=== PATIENT | female | born 1955 | race Caucasian/White ===

== ENCOUNTER 2019-08-02 14:49 | Inpatient (IN) ==
[2019-08-02] MEDS ORDERED: Dextrose Gel 15 GM/37.5 ML TUBE PO PRN ×2 (20:56)
[2019-08-02] MEDS ORDERED: D5% in Water 1,000 ML IVC PRN (20:56)
[2019-08-02] MEDS ORDERED: *HR* Dextrose 50 % in Water (Syg) 50 ML SYRINGE IVP PRN (20:56)
[2019-08-02] MEDS ORDERED: Insulin LISPRO 300 UNITS/3 ML VIAL SQ SCH (21:00)
[2019-08-02] MEDS ORDERED: tiZANidine 4 MG TABLET PO PRN (22:07)
[2019-08-02 22:08] LABS: Basophils % 0.5 %; Eosinophils # 0.3 K/mcL (0.0-0.6); Eosinophils % 4.5 %; Hematocrit 39.7 % (35.3-44.9); Hemoglobin 13.4 g/dL (11.5-15.4); Immature Granulocytes % 0.2 % (0-4); Lymphocytes # 1.6 K/mcL (0.6-4.6); Lymphocytes % 26.4 %; Mean Corpuscular HGB Conc 33.8 g/dL (31.6-35.5); Mean Corpuscular Hemoglobin 29.8 pg (28.0-33.3); Mean Corpuscular Volume 88.4 fL (83.0-100.0); Monocytes # 0.6 K/mcL (0.0-1.3); Monocytes % 9.9 %; Neutrophils # 3.5 K/mcL (1.6-8.9); Platelet Count 154 K/mcL (140-400); Red Blood Count 4.49 M/mcL (3.82-4.97); Red Cell Distribution Width 13.2 % (11.5-14.5); Segmented Neutrophils % 58.5 %
[2019-08-02 22:10] LABS: Estimated Average Glucose 212 mg/dl
[2019-08-02] MEDS ORDERED: Acetaminophen 325 MG TABLET PO PRN (22:10)
[2019-08-02] MEDS ORDERED: Ondansetron 4 MG/2 ML VIAL IVP PRN (22:10)
[2019-08-02] MEDS ORDERED: traMADol 50 MG TABLET PO PRN (22:10)
[2019-08-02] MEDS ORDERED: Naloxone 0.4 MG/ML INJ IVP PRN (22:10)
[2019-08-02] MEDS ORDERED: 0.9 % Sodium Chloride 1,000 ML IVC SCH (22:15)
[2019-08-02 22:28] LABS: Alanine Aminotransferase 40 Units/L (7-52); Albumin 3.7 g/dL (3.5-5.7); Albumin/Globulin Ratio 1.2 (1.1-2.2); Alkaline Phosphatase 87 Units/L (34-104); Aspartate Amino Transferase 57 Units/L (13-39); BUN/Creatinine Ratio 30 (6-26); Bilirubin,Direct 0.2 mg/dL (0.0-0.2); Bilirubin,Indirect 0.5 mg/dL (0.0-1.2); Bilirubin,Total 0.7 mg/dL (0.3-1.0); Blood Urea Nitrogen 18 mg/dL (8-23); Calcium 8.8 mg/dL (8.6-10.3); Carbon Dioxide 24 mEq/L (23-29); Chloride 104 mEq/L (98-107); Chol/HDL Ratio 3.4 (0-4.9); Cholesterol 115 mg/dL (< 200); Glucose 242 mg/dL (70-105); HDL Cholesterol 34 mg/dL (40-59); LDL Cholesterol,Calculated 57 mg/dL (0-99); Magnesium 1.9 mg/dL (1.6-2.6); Osmolality,Calculated 294 (280-300); Potassium 3.4 mEq/L (3.5-5.1); Sodium 137 mEq/L (136-145); Total Protein 6.7 g/dL (6.4-8.9); Triglycerides 121 mg/dL (< 150); eGFR For African Americans > 60 (> 60); eGFR For Non-African Americans > 60 (> 60)
[2019-08-02] MEDS: *HR* OxyCODONE Immed Rel 5 MG TABLET PO PRN (22:28)
--- NOTE | 2019-08-02 23:35 | Internal Med History&Physical ---
Date of Encounter: 08/02/19 Time of Encounter: 21:30 Internal Medicine - H&P: HPI Chief complaint: Right ankle pain Admitted From: Hospital to Hospital Transfer Plans for Post Hospital Care: Home History of present illness: Ms. Fontana is a 63 year old female w/PMH of HLD, DM, GERD, neuropathy, seasonal allergies, chronic back pain, and anxiety presents from [facility] w/CC of right ankle pain and swelling from a fall sustained at home today. Patient reports that she was having a yard sale and was carrying an arm full of items down three steps when she missed a step and fell into grass. Patient reports pain in right ankle as well as muscle spams but denies dizziness, LOC, or striking head. Patient states that she was sedated and had rt. ankle reduction prior to being transferred to [facility]. Patient denies recent illness, fever, chills, nausea, vomiting, headache, changes in vision, chest pain, shortn ess of breath, abdominal pain, diarrhea, constipation, dizziness, lightheadedness, unusual bleeding, numbness, tingling, pre-syncope, or syncope. Past Med Surg Social Fam HX - Past Medical History Source: patient, old records reviewed Medical history: diabetes, GERD, hyperlipidemia, pulmonary embolus Additional medical history: neuropathy, chronic back pain, seasonal allergies Psychiatric history: anxiety - Past Surgical History Surgical History: cholecystectomy, hysterectomy Additional surgical history: tubal ligation - Social History Smoking Status: Former smoker Packs per day: 3-4 PPD - Reports quitting in 2001 Smokeless Tobacco Status: No Alcohol use: none Drug use: none Current living situation: Home, With Family Activity Level: Independent ambulation Recent Out of Country Travel Within the Last 8 Weeks: No Exposure or Possible Exposure to Illness During Travel: No - Family History Mother Race: Family Member Ethnicity: Non- Living Status: Age at : 84 Cause of : Heart Failure Hx Family Cardiac Disorders: Yes (CAD, Murmur, Afib, HF) Father Race: Family Member Ethnicity: Non- Living Status: Age at : 51 Cause of : Pneumonia Hx Family Respiratory Disorders: Yes (Asthma, PNA) Hx Family Musculoskeletal Disorders: Yes (Chronic back pain) Brother Race: Family Member Ethnicity: Non- Living Status: Age at : 63 Cause of : Pancreatic Cancer Hx Family Cardiac Disorders: Yes (CABG, CAD) Hx Family Cancer: Yes (Pancreatic) Hx Family Endocrine Disorder: Yes (DM) Sister Race: Family Member Ethnicity: Non- Living Status: Age at : 64 Cause of : Cancer (Type unknown) Hx Family Cardiac Disorders: Yes (CHF, CAD) Hx Family Cancer: Yes (Unknown) Hx Family Endocrine Disorder: Yes (DM) Internal Medicine - H&P: Meds Aspirin [Lo-Dose Aspirin EC] 81 mg PO DAILY 08/02/19 [History] Atorvastatin [Lipitor] 10 mg PO HS 08/02/19 [History] Esomeprazole Magnesium [Nexium] 20 mg PO DAILY 08/02/19 [History] Gabapentin [Neurontin] 100 mg PO BID 08/02/19 [History] Montelukast [Singulair] 10 mg PO HS 08/02/19 [History] Triamterene/Hydrochlorothiazid [Dyazide 37.5-25 Capsule] 25 each PO DAILY 08/02/19 [History] Venlafaxine [Effexor] 37.5 mg PO HS 08/02/19 [History] metFORMIN [Glucophage] 500 mg PO DAILY 08/02/19 [History] Allergy/AdvReac Type Severity Reaction Status Date / Time Cyclobenzaprine AdvReac Vomiting Verified 08/02/19 22:10 All Systems PM: A 10-system review of systems was performed and is negative for pertinent findings except as documented above in the HPI. - Constitutional Constitutional: no chills, no fever(s), no night sweats - EENT Eyes: no change in vision, no discharge, no pain, no photophobia Ears: no ear discharge, no ear pain, no tinnitus Nose, mouth and throat: no dysphagia, no nasal discharge, no neck pain, no sore throat - Breasts Breasts: as per HPI - Cardiovascular Cardiovascular ROS IM: no chest pain, no diaphoresis, no dyspnea, no lightheadedness, no palpitations, no syncope - Respiratory Respiratory: no cough, no dyspnea, no wheezing, no excessive phlegm production - Gastrointestinal Gastrointestinal: no abdominal pain, no diarrhea, no hematemesis, no hematochezia, no melena, no nausea, no vomiting - Genitourinary Genitourinary: no change in urinary stream, no dysuria, no flank pain, no hematuria Menstruation: as per HPI, post hysterectomy - Musculoskeletal Musculoskeletal ROS IM: no numbness, no tingling - Integumentary Integumentary IM: no rash, no unusual bruising - Neurological Neurological ROS: no confusion, no convulsions, no focal weakness, no numbness, no tingling, no tremor(s) - Psychiatric Psychiatric: as per HPI - Endocrine Endocrine IM: as per HPI - Hematologic/Lymphatic Hematologic/Lymphatic: no easy bruising - Allergic/Immunologic Allergic/Immunologic: as per HPI - Constitutional Vitals: Temp Pulse Resp BP Pulse Ox 98.4 F 77 20 117/77 96 08/02/19 21:39 08/02/19 21:39 08/02/19 21:39 08/02/19 21:39 08/02/19 21:39 General appearance: Present: cooperative, mild distress, A&O X 3, pleasant, obese, answers questions appropriately Exam: Patient examined at bedside and was reporting pain in right ankle and muscle s pasms in right leg. Patient denies any other sx or complaints on examination. VS: 98.4F temp, HR 77, RR 20, BP 117/77, SPO2 96% on room air. - Head Head exam: Present: atraumatic, normocephalic - Eye Eye exam: Present: PERRL, conjuntiva pink, sclera anicteric Pupils: Present: PERRL - ENT ENT exam: Present: normal exam - Neck Neck exam general surgery: Present: normal inspection, supple, trachea midline. Absent: lymphadenopathy - Respiratory Respiratory exam: Present: CTAB. Absent: accessory muscle use, rales, rhonchi, wheezes - Cardiovascular Cardiovascular exam: Present: RRR, +S1, +S2. Absent: diastolic murmur, gallop, rubs, systolic murmur - GI/Abdominal GI/Abdominal exam: Present: normal bowel sounds, soft, no peritoneal signs. Absent: distended, tenderness - Rectal Rectal exam: Present: deferred - Additional comments: exam deferred. - Extremities Exam Extremities exam: Present: warm, radial pulses palpable and symmetrical. Absent: calf tenderness, cyanotic, pedal edema - Back Exam Back exam: Present: normal inspection - Neurological Exam Neurological exam: Present: alert, CN II-XII intact, oriented X3, no focal deficits. Absent: pronater drift, facial droop, speech deficit - Psychiatric Psychiatric exam: Present: normal affect, normal mood - Skin Skin exam: Present: dry, intact Internal Med - H&P Results - Labs CBC & Chem 7: 08/02/19 21:35 08/02/19 21:35 Labs: Short CBC 08/02/19 Range/Units 21:35 WBC 6.0 (4.3-11.1) K/mcL Hgb 13.4 (11.5-15.4) g/dL Hct 39.7 (35.3-44.9) % Plt Count 154 (140-400) K/mcL Neutrophils # 3.5 (1.6-8.9) K/mcL BMP 08/02/19 21:35 Sodium 137 Potassium 3.4 L Chloride 104 Carbon Dioxide 24 BUN 18 Creatinine 0.61 Glucose 242 H Calcium 8.8 Liver Function 08/02/19 Range/Units 21:35 Total Bilirubin 0.7 (0.3-1.0) mg/dL Direct Bilirubin 0.2 (0.0-0.2) mg/dL AST 57 H (13-39) Units/L ALT 40 (7-52) Units/L Alkaline Phosphatase 87 (34-104) Units/L Albumin 3.7 (3.5-5.7) g/dL - EKG Data EKG shows normal: sinus rhythm Rate: normal - EKG Data Prior EKG available for review: no Interpretation IM: normal EKG - Impressions ITS Impressions Chest X-Ray 08/02/19 22:20 IMPRESSION: Possible 13 mm spiculated pulmonary nodule within the left lung apex. Recommend follow-up chest CT. No radiographic evidence of acute cardiopulmonary process. The findings were sent to the Radiology Results Communication Center at 10:22 pm on 08/02/2019 to be communicated to a licensed caregiver. D/ / 08/02/2019 22:42:41 Denzel Arana MD / dany Interpreting Provider: Denzel Arana MD - Assessment and Plan (1) Closed right ankle fracture Current Visit: Yes Status: Acute Assessment and plan: Acute and closed right ankle fracture with pain and swelling from a fall sustained at home today. Patient reports that she was having a yard sale and was carrying an arm full of items down three steps when she missed a step and fell into grass. Patient reports pain in right ankle as well as muscle spams but denies dizziness, LOC, or striking head. Patient states that she was sedated and had rt. ankle reduction prior to being transferred to [facility]. No recent cardiac w/u. Patient has familial hx of CAD/HF. EKG shows sinus rhythm and normal ECG. 1V CXR shows possible 13 mm spiculated pulmonary nodule within the left lung apex recommend follow-up chest CT. No radiographic evidence of acute cardiopulmonary process. Echocardiogram ordered. Ortho consult ordered prior to patient transfer to [facility] and I appreciate the consult and recommendations as always. Patient is high risk for further morbidity and complications based on current right ankle fracture, familial hx of CAD/HF, no recent cardiac w/u requiring testing and imaging for surgical clearance, previously heavy tobacco abuse (3-4 PPD); and current risk factors of HLD, DM, and obesity. Inpatient. Qualifiers: Encounter type: initial encounter Qualified Code(s): S82.891A - Other fracture of right lower leg, initial encounter for closed fracture (2) Hypokalemia Current Visit: Yes Status: Acute Assessment and plan: Acute hypokalemia on admission w/potassium of 3.4. 40 mEq PO potassium ordered once. Will re-check K at 04:00. Continuous cardiac telemetry. (3) HLD (hyperlipidemia) Current Visit: Yes Status: Chronic Assessment and plan: Hx of chronic HLD. Lipid panel shows triglycerides 121, cholesterol 115, LDL cholesterol 57, VLDL cholesterol 24, HDL cholesterol 34, and cholesterol/HDL ratio 3.4. Continue pts. Lipitor. Qualifiers: Hyperlipidemia type: pure hypercholesterolemia Qualified Code(s): E78.00 - Pure hypercholesterolemia, unspecified; E78.0 - Pure hypercholesterolemia (4) Diabetes Current Visit: Yes Status: Chronic Assessment and plan: Hx of chronic diabetes controlled with oral anti-hyperglycemic medication. Will hold oral medication and administer low-dose correction SS insulin w/hypoglycemic protocol. A1c 9.0 on admission. BG checks and SS insulin Q6HR while patient is NPO for surgery. BG checks and SS insulin ACHS when patient is no longer NPO and has diet order in place. Qualifiers: Diabetes mellitus type: type 2 Diabetes mellitus shelter insulin use: without shelter use Diabetes mellitus complication status: with neurologic complications Diabetes mellitus complication detail: with unspecified neuropathy Qualified Code(s): E11.40 - Type 2 diabetes mellitus with diabetic neuropathy, unspecified (5) Neuropathy Current Visit: Yes Status: Chronic Assessment and plan: Hx of chronic diabetic neuropathy in bilateral feet. Continue pts. Neurontin. (6) GERD (gastroesophageal reflux disease) Current Visit: Yes Status: Chronic Assessment and plan: Hx of chronic GERD. Continue pts. Nexium. Qualifiers: Esophagitis presence: esophagitis presence not specified Qualified Code(s): K21.9 - Gastro-esophageal reflux disease without esophagitis (7) Seasonal allergies Current Visit: Yes Status: Chronic Assessment and plan: Hx of chronic seasonal allergies. Continue pts. Singulair. (8) Anxiety Current Visit: Yes Status: Chronic Assessment and plan: Hx of chronic anxiety. Continue pts. Effexor. (9) DVT prophylaxis Current Visit: Yes Status: Acute Assessment and plan: SCD on LLE for DVT prophylaxis d/t impending surgery. - Time Spent With Patient Total time spent is greater than 50% in coordination of care (as documented) at patient's floor/unit and/or counseling patient: Greater than 35 minutes
[2019-08-03] MEDS: Insulin LISPRO 300 UNITS/3 ML VIAL SQ SCH ×3 (01:44→13:38)
[2019-08-03] MEDS: *HR* OxyCODONE Immed Rel 5 MG TABLET PO PRN ×3 (04:21→23:57)
[2019-08-03] MEDS ORDERED: Perflutren Lipid Microsphere 1.3 ML in 0.9 % Sodium Chloride 8.7 ML IVP ONE ×2 (07:17→17:03)
[2019-08-03] MEDS ORDERED: Insulin LISPRO 300 UNITS/3 ML VIAL SQ SCH ×3 (07:30→21:00)
--- NOTE | 2019-08-03 08:16 | Podiatry Consult Note ---
Date of Encounter: 08/03/19 Time of Encounter: 08:20 Assessment and Plan (1) Closed trimalleolar fracture of right ankle Current visit: Yes Status: Acute I had a thorough review with the patient lasting 62 minutes regarding her injury , my findings, and recommendations for treatment. we discussed her ankle and that the fracture is not stable as deformity is easily reproduced. we discussed she will have arthritis of the right ankle joint due to her injury and may have pain in the future. she could need future surgery for the arthritis but for now discussed ORIF right ankle fracture and syndesmosis using plates, screws or other fixation as well as fixation. Nature of procedure, risks vs benefits, potential complications and consequences of the procedure and her injury discussed at length (including but not limited to infection, bleeding, swelling, numbness, tingling, nerve damage, loss of limb, loss of life, wound healing problems, delayed or nonhealing of bone fracture, arthritis, loss of functionality, ongoing or persistent pain, pneumonia, lack of procedure to produce desired outcome, kidney disease, liver problems, pulmonary embolism, blood clot, heart attack, reaction to implants, need for hardware removal need for further surgery etc.) as well as a typical course of recovery of non-wb for 8-12 weeks followed by a walking boot. no guaratees were made as to the outcome. All questions were answered, informed consent was signed. Did discuss with patient it is imperative that she stay off her right ankle and remain non- weightbearing and if she does not her ankle will redislocate and the bones could come out of her skin and she could require an amputation of her leg. Poste rior splint reapplied. Elevation. Remain non-wb to the right LE in the splint. Remain NPO. on call to OR. Qualifiers: Encounter type: initial encounter Qualified Code(s): S82.851A - Displaced trimalleolar fracture of right lower leg, initial encounter for closed fracture (2) Diabetes mellitus with neuropathy Current visit: Yes Status: Acute encouraged glycemic control and discussed the detrimental effects of high blood sugar on wound and fracture healing. discussed increased risk of complications with elevated blood sugar and also mcc effect on nerves. Qualifiers: Diabetes mellitus type: type 2 Diabetes mellitus rn long term care insulin use: without mcc use Qualified Code(s): E11.40 - Type 2 diabetes mellitus with diabetic neuropathy, unspecified History of Present Illness HPI: Ms. Fontana is a 63 year old diabetic female who says yesterday she was having a garage sale and mis-stepped as she was walking downstairs resulting in her falling and twisting her right ankle. she says it hurt a lot and she was unable to put weight on it. Her family called EMS who brought her to the ER where an xray was done. She says the ankle was broken and they put her ankle back into place. there are no post-reduction films sent with the patient. She was transferred from [facility] to [place]. She is currently in a posterior splint. She says a few months ago she had her A1c checked and it was good. her A1c was 9% when checked here yesterday. she says she does not know how her blood sugar average got so bad. patient takes metformin at home and says that her doctor that manages her diabetes doubled the dose of her metformin the last time she was seen. says she was told previously to take vitamin D but has not yet taken it. She says her pain currently is a 1-2/10 and if her ankle is moved it becomes an 8-9/10. She denies any significant cardiac history. She does report she has numbness and tingling in her feet at baseline and also lower back problems. She does have some family support at home and says she has her and son to help. Past Med Surg Social Fam HX - Past Medical History Medical history: diabetes, GERD, hyperlipidemia, pulmonary embolus Additional medical history: neuropathy, chronic back pain, seasonal allergies Psychiatric history: anxiety - Past Surgical History Surgical History: cholecystectomy, hysterectomy Additional surgical history: tubal ligation - Social History Smoking Status: Former smoker Packs per day: 3-4 PPD - Reports quitting in 2001 Smokeless Tobacco Status: No Alcohol use: none Drug use: none - Family History Mother Race: Family Member Ethnicity: Non- Living Status: Age at : 84 Cause of : Heart Failure Hx Family Cardiac Disorders: Yes (CAD, Murmur, Afib, HF) Father Race: Family Member Ethnicity: Non- Living Status: Age at : 51 Cause of : Pneumonia Hx Family Respiratory Disorders: Yes (Asthma, PNA) Hx Family Musculoskeletal Disorders: Yes (Chronic back pain) Brother Race: Family Member Ethnicity: Non- Living Status: Age at : 63 Cause of : Pancreatic Cancer Hx Family Cardiac Disorders: Yes (CABG, CAD) Hx Family Cancer: Yes (Pancreatic) Hx Family Endocrine Disorder: Yes (DM) Sister Race: Family Member Ethnicity: Non- Living Status: Age at : 64 Cause of : Cancer (Type unknown) Hx Family Cardiac Disorders: Yes (CHF, CAD) Hx Family Cancer: Yes (Unknown) Hx Family Endocrine Disorder: Yes (DM) Medications and Allergies Aspirin [Lo-Dose Aspirin EC] 81 mg PO DAILY 08/02/19 [History] Atorvastatin [Lipitor] 10 mg PO HS 08/02/19 [History] Esomeprazole Magnesium [Nexium] 20 mg PO DAILY 08/02/19 [History] Gabapentin [Neurontin] 100 mg PO BID 08/02/19 [History] Montelukast [Singulair] 10 mg PO HS 08/02/19 [History] Triamterene/Hydrochlorothiazid [Dyazide 37.5-25 Capsule] 25 each PO DAILY 08/02/19 [History] Venlafaxine [Effexor] 37.5 mg PO HS 08/02/19 [History] metFORMIN [Glucophage] 500 mg PO DAILY 08/02/19 [History] Allergy/AdvReac Type Severity Reaction Status Date / Time Cyclobenzaprine AdvReac Vomiting Verified 08/02/19 22:10 All Systems Reviewed: The remainder of the systems were reviewed and are negative - Constitutional Constitutional: no fever(s) - Cardiovascular Cardiovascular: no chest pain, no dyspnea - Respiratory Respiratory: no cough - Musculoskeletal Musculoskeletal: limited range of motion, numbness Physical Exam - Constitutional Vitals: Temp Pulse Resp BP Pulse Ox 98.2 F 69 18 113/76 92 08/03/19 06:28 08/03/19 06:28 08/03/19 06:28 08/03/19 06:28 08/03/19 06:28 General appearance: no acute distress - Head Head exam: Present: atraumatic - Eye Eye exam: Present: EOMI - Respiratory Respiratory exam: Present: CTAB - Cardiovascular Cardiovascular exam: Present: +S1, +S2 - GI/Abdominal GI/Abdominal exam: Present: soft. Absent: tenderness - Ankle & Foot Appearance ankle: swelling Tenderness with palpation ankle: anterior ankle, anteromedial ankle, medial ankle Exam: well developed and nourished female in no acute distress Well developed and nourished female in no acute distress Vasc: CFT < 3 sec x 5 digits right foot. right foot is warm to touch. Mild edema of right ankle. Derm: no open lesions. No erythema. Small medial fracture blister, otherwise no fracture blisters. no necrosis. no tenting of the skin. Musc: did not assess ROM secondary to injury. Able to flex and extend left foot digits. No calf pain with squeeze. deformity of the right ankle is easily reproduced. Neuro: diminished protective sensation Xrays-displaced trimalleolar ankle fracture Results - Labs Result Diagrams: 08/02/19 21:35 08/03/19 03:14 Labs: Abnormal lab results Potassium 3.4 mEq/L (3.5-5.1) L 08/02/19 21:35 BUN/Creatinine Ratio 30 (6-26) H 08/02/19 21:35 Glucose 242 mg/dL (70-105) H 08/02/19 21:35 POC Glucose 266 mg/dL (70-99) H 08/02/19 20:43 Hemoglobin A1c 9.0 % (-5.6) H 08/02/19 21:35 AST 57 Units/L (13-39) H 08/02/19 21:35 HDL Cholesterol 34 mg/dL (40-59) L 08/02/19 21:35 H & H 08/02/19 Range/Units 21:35 Hgb 13.4 (11.5-15.4) g/dL Hct 39.7 (35.3-44.9) % All other labs normal. Consult Discharge Plan - Plan Referrals: NONE,PCP [Primary Care Provider] - Constitutional: Denies: fever, chills Eyes: Denies: eye pain Cardiovascular: Denies: chest pain Respiratory: Denies: cough, dyspnea Gastrointestinal: Denies: abdominal pain, nausea Genitourinary: Denies: urgency, dysuria Musculoskeletal: Reports: back pain, joint swelling, other Neurological: Reports: numbness ((diabetes)) Psychiatric: Reports: depression Endocrine: Denies: fatigue Hematological/Lymphatic: Denies: easy bleeding Allergic/Immunologic: Denies: facial swelling
--- NOTE | 2019-08-03 10:36 | Internal Med Progress Note ---
Hospitalist Progress Note - Encounter Date of Encounter: 08/03/19 Time of Encounter: 09:30 - Subjective Interval History: H&P reviewed. 63-year-old female with history of diabetes, hyperlipidemia, obesity, chronic low back pain, who was admitted for right ankle fracture following a mechanical fall. Prior to the injury, he states that she is able to climb up a flight of stairs without dyspnea. Denies any chest pain, palpitation, orthopnea, PND, or leg swelling. - Exam Vitals: Temp Pulse Resp BP Pulse Ox 98.2 F 69 18 113/76 92 08/03/19 06:28 08/03/19 06:28 08/03/19 06:28 08/03/19 06:28 08/03/19 06:28 Exam: General: Alert and oriented, not in acute distress. Cardiovascular:Normal S1 & S2, No JVD. Pulse regular. Lungs: clear to auscultation, no wheezes/rales Abdomen:Soft, non-tender, no rigidity. Extremities: R LE in splint Neurological:Normal cognition and motor skills. Non-focal Skin:Normal color, no rash, no lesions. - Assessment and Plan (1) Closed right ankle fracture Current Visit: Yes Status: Acute Assessment and Plan: following a mechanical fall podiatry input appreciated, for OR today analgesics (2) Pre-op evaluation Current Visit: Yes Status: Acute Assessment and Plan: Patient does not have any signs and symptoms of ACS, malignant arrhythmia, or decompensated CHF. RCRI 0, able to perform > 4 METS at baseline Low risk for surgery, echocardiogram was essentially normal. No further pre-op testing is necessary (3) Hypokalemia Current Visit: Yes Status: Resolved Assessment and Plan: Repleted and normalized (4) HLD (hyperlipidemia) Current Visit: Yes Status: Chronic Assessment and Plan: Continue home medicine (5) Diabetes Current Visit: Yes Status: Chronic Assessment and Plan: On metformin at home, hold off. We will use low-dose sliding scale. (6) GERD (gastroesophageal reflux disease) Current Visit: Yes Status: Chronic Assessment and Plan: PPI (7) Anxiety Current Visit: Yes Status: Chronic Assessment and Plan: on Effexor (8) DVT prophylaxis Current Visit: Yes Status: Acute Assessment and Plan: SCD - Time Spent with Patient Total time spent is greater than 50% in coordination of care (as documented) at patient's floor/unit and/or counseling patient: 25 - 35 minutes Plan of Care Discussed with: patient Internal Medicine: Result - Labs CBC & Chem 7: 08/02/19 21:35 08/03/19 03:14 Labs: Short CBC 08/02/19 Range/Units 21:35 WBC 6.0 (4.3-11.1) K/mcL Hgb 13.4 (11.5-15.4) g/dL Hct 39.7 (35.3-44.9) % Plt Count 154 (140-400) K/mcL Neutrophils # 3.5 (1.6-8.9) K/mcL BMP 08/02/19 08/03/19 21:35 03:14 Sodium 137 Potassium 3.4 L 3.8 Chloride 104 Carbon Dioxide 24 BUN 18 Creatinine 0.61 Glucose 242 H Calcium 8.8 Liver Function 08/02/19 Range/Units 21:35 Total Bilirubin 0.7 (0.3-1.0) mg/dL Direct Bilirubin 0.2 (0.0-0.2) mg/dL AST 57 H (13-39) Units/L ALT 40 (7-52) Units/L Alkaline Phosphatase 87 (34-104) Units/L Albumin 3.7 (3.5-5.7) g/dL - Impressions Impressions Chest X-Ray 08/02/19 22:20 IMPRESSION: 1. Possible 13 mm spiculated pulmonary nodule within left lung apex. Recommend follow-up chest CT. 2. No radiographic evidence of acute cardiopulmonary process. The findings were sent to the Radiology Results Communication Center at 10:22 pm on 08/02/2019 to be communicated to a licensed caregiver. D/ / 08/02/2019 22:42:41 Denzel Arana MD / [email or web address] Interpreting Provider: Denzel Arana MD Echocardiogram 08/03/19 08:09 Impressions: LVEF 60-65%. Normal LV chamber size, wall thickness and function. Normal left ventricular diastolic function. No evidence of pulmonary hypertension identified. No significant valvular dysfunction. Left Ventricular Wall Motion: Rest Echo Findings All wall segments showed normal motion. Findings: Study Quality * Technically sub-optimal due to poor echocardiographic windows. ECG Findings * Normal sinus rhythm. Left Ventricle * LVEF 60-65%. * Normal LV chamber size, wall thickness and function. * Normal left ventricular diastolic function. Right Ventricle * Normal right ventricular structure and function. Left Atrium * Normal left atrial size. Right Atrium * Normal right atrial size. Interatrial Septum * Interatrial septum not well evaluated. Aortic Valve * Aortic valve not well visualized. * No aortic regurgitation. * No aortic stenosis. Mitral Valve * Normal mitral valve structure and function. * No mitral regurgitation. * No mitral stenosis. Tricuspid Valve * Normal tricuspid valve structure and function. * Trace tricuspid regurgitation. * No evidence of pulmonary hypertension identified. Pulmonic Valve * Pulmonic valve not well visualized. Aorta * Normally sized aortic root. Pericardium * The pericardium appears normal. IVC * Normal IVC dimensions and inspiratory collapse. Pulmonary Artery * Grossly normal sized. Consult Discharge Plan - Plan Referrals: NONE,PCP [Primary Care Provider] - (1) Closed right ankle fracture Qualifiers: Encounter type: initial encounter Qualified Code(s): S82.891A - Other frac ture of right lower leg, initial encounter for closed fracture (4) HLD (hyperlipidemia) Qualifiers: Hyperlipidemia type: pure hypercholesterolemia Qualified Code(s): E78.00 - Pure hypercholesterolemia, unspecified; E78.0 - Pure hypercholesterolemia (5) Diabetes Qualifiers: Diabetes mellitus type: type 2 Diabetes mellitus termite helper insulin use: without termite helper use Diabetes mellitus complication status: with neurologic complications Diabetes mellitus complication detail: with unspecified neuropathy Qualified Code(s): E11.40 - Type 2 diabetes mellitus with diabetic neuropathy, unspecified (6) GERD (gastroesophageal reflux disease) Qualifiers: Esophagitis presence: esophagitis presence not specified Qualified Code(s): K21.9 - Gastro-esophageal reflux disease without esophagitis
--- NOTE | 2019-08-03 11:51 | Anesthesia Evaluation PreOp ---
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: Other (anxiety) Other Medical History: Diabetes Type II, GERD, Other (neuropathy, chronic back pain,) Anesthesia History: No Prior Anesthetic Complications, Past Anesthesia (oscar, hyster, tubal) : No Alcohol Use: none Drug use: none Medications and Allergies Aspirin [Lo-Dose Aspirin EC] 81 mg PO DAILY 08/02/19 [History] Atorvastatin [Lipitor] 10 mg PO HS 08/02/19 [History] Esomeprazole Magnesium [Nexium] 20 mg PO DAILY 08/02/19 [History] Gabapentin [Neurontin] 100 mg PO BID 08/02/19 [History] Montelukast [Singulair] 10 mg PO HS 08/02/19 [History] Triamterene/Hydrochlorothiazid [Dyazide 37.5-25 Capsule] 25 each PO DAILY 08/02/19 [History] Venlafaxine [Effexor] 37.5 mg PO HS 08/02/19 [History] metFORMIN [Glucophage] 500 mg PO DAILY 08/02/19 [History] Allergy/AdvReac Type Severity Reaction Status Date / Time Cyclobenzaprine AdvReac Vomiting Verified 08/02/19 22:10 - Meds/Allergy Pre-op Review Medications Reviewed: Yes Allergies Reviewed: Yes Beta Blockers on Current Med List: No Anesthesia Results - Labs 08/02/19 21:35 08/03/19 03:14 - Imaging Chest x-ray: report reviewed (apical nodule 13mm) Additional studies: Echo EF 60-65% Anesthesia Exam Vital Signs/O2 Sat/Glucose, Most Recent Temp Pulse Resp BP Pulse Ox 98.9 F 83 18 120/69 94 08/03/19 11:39 08/03/19 11:39 08/03/19 11:39 08/03/19 11:39 08/03/19 11:39 Blood Glucose* 122 - HEENT Pupil (Motor): Pupils equal, EOMI Mallampati: II Teeth: Normal Oral Opening: Greater than 3 - TEXTILE SCREEN MAKER LOC: Oriented TEXTILE SCREEN MAKER Motor: Normal RUE, Normal LUE, Normal RLE, Normal LLE, Normal Face TEXTILE SCREEN MAKER Sensory: Normal: RUE, LUE, RLE, LLE, Face - Cardiac Rhythm: Regular Murmur: None JVD: No - Pulmonary Breath Sounds: bilateral Clear Respiratory Effort: Symmetrical Anesthesia Assess/Plan ASA Score: 3 Level of consciousness: Cooperative, Oriented Anesthetic Plan: General, Regional Nerve Block Monitoring Plan: Standard Monitors Recovery Plan: PACU
[2019-08-03] MEDS ORDERED: *HR* Meperidine 25 MG/ML SYRINGE IVP PRN ×2 (11:57→17:03)
[2019-08-03] MEDS ORDERED: *HR* Midazolam HCl 2 MG/2 ML VIAL IVP PRN ×2 (11:57→17:03)
[2019-08-03] MEDS ORDERED: *HR* HYDROmorphone (PF) 1 MG/ML SYRINGE IVP PRN ×2 (11:57→17:03)
[2019-08-03] MEDS ORDERED: *HR* Promethazine 25 MG/ML VIAL IVP PRN ×2 (11:57→17:03)
[2019-08-03] MEDS ORDERED: Acetaminophen IV 1,000 MG/100 ML INFUS..BTL IVPB ONE ×2 (11:57→17:03)
[2019-08-03] MEDS ORDERED: Ringers Solution, Lactated 1,000 ML IVC SCH ×2 (12:00→17:03)
[2019-08-03] MEDS ORDERED: *HR* Midazolam HCl 2 MG/2 ML VIAL ONE (12:47)
[2019-08-03] MEDS ORDERED: *HR* FentaNYL (PF) 100 MCG/2 ML VIAL ONE (12:47)
[2019-08-03] MEDS ORDERED: *HR* Propofol 200 MG/20 ML VIAL IVP ONE ×2 (12:47→14:56)
[2019-08-03] MEDS ORDERED: Dexamethasone 4 MG/ML VIAL ONE ×2 (12:48→14:42)
[2019-08-03] MEDS ORDERED: *HR* Succinylcholine 200 MG/10 ML VIAL IVP ONE (12:48)
[2019-08-03] MEDS ORDERED: Lidocaine -MPF 2% 2 ML VIAL ONE (12:48)
[2019-08-03] MEDS ORDERED: ROPIVACAINE/PF/NS 0.25% 1 EACH SYRINGE INTRAART ONE (13:43)
[2019-08-03] MEDS ORDERED: Ropivacaine/PF 0.5% 30 ML VIAL ONE (13:43)
--- NOTE | 2019-08-03 13:54 | Operative Note ---
Date of procedure: 08/03/19 Pre-op diagnosis: right trimalleolar ankle fracture Procedure: ORIF right trimalleolar ankle fracture ORIF syndesmosis Implants: [id number] plate and screws Complications: none Anesthesia: GETA Local Anesthetics: 0.25% Sensorcaine HCL with Epinephrine 1:200,000 SubQ (cc) Surgeon: Alejandro Mahoney Was there an sales assistants and salespersons present: No Estimated blood loss (cc): 10 Tourniquet Time (Minutes): 59 Specimen: none Condition: stable Disposition: PACU Procedure in Detail: Indications: 63-year-old uncontrolled diabetic female with neuropathy sustained a right trimalleolar ankle fracture dislocation yesterday and being brought to the operating room for the above procedure after having the nature of the procedure, risks versus benefits potential complications and consequences of surgery and her condition discussed at length. She understood that she will have arthritis due to the nature of her injury. All of her questions have been answered and the informed consent and then signed. Patient was given a popliteal block by anesthesia. Patient was brought to the operating room placed on operating room table in the supine position. The right lower extremity was scrubbed prepped and draped in the usual sterile fashion and the following procedure then began after inflating the tourniquet to 300 mmHg. ORIF right trimalleolar ankle fracture, ORIF of syndesmosis. Attention was directed to the lateral aspect of the patient's right ankle were #15 blade was used to make a skin incision approximately 7 cm in length over the fracture site. Skin incision was deepened through blunt dissection all traversing veins were divided and ligated using the Bovie or Vicryl ties as deemed appropriate. Care was taken to avoid neurovascular and tendon structures. The periosteal layer was incised and freed from the fibula exposing the fracture zone of the fibula which was comminuted. Hematoma was evacuated from the fracture zone. The ankle was pinned in a reduced position with the talus under the tibia and well aligned and the ankle mortise. C-arm was utilized to confirm reduction of the talus and the ankle mortise and that the fibula was out to length. Reduction clamps were used to stabilize the fracture zone using an [id number] one third tubular plate was placed over the later aspect of the fibula. Stability was noted across the fracture zone clinically. The fibula was out to length. Three screws were placed proximally and distally. The site was flushed with saline irrigation. Stability of the fracture zone was assessed and the fracture zone had good apposition and the ankle was noted to be in good position and alignment on the C-arm. Attention was then directed medially where a #15 blade was used to make a skin incision approximately 3 cm in length over the medial malleolus. Skin incision was deepened through blunt dissection care was taken to avoid neurovascular tendinous structures. Hematoma was evacuated from the fracture zone and periosteum removed from the fracture zone. The medial malleolar fracture fragment was then reduced with a reduction clamp and pinned temporarily. C-arm was utilized to confirm position and alignment of the k-wires traversing the fracture zone. Fracture was noted to be reduced and two 4.0mm partially threaded cannulated [id number] screws were thrown across the fracture zone. The posterior malleolar fragment was small and the decision was made not to fixate the fragment. Attention was then directed laterally where the cotton hook test was performed and instability of the syndesmosis was felt to be present. The lateral ankle incision was extended distally and the last hole in the one third tubular plate was identified. The pelvic reduction clamp was utilized under fluoroscopy and the syndesmosis held in a reduced position and a 3.5 mm nonlocking [id number] screw was thrown through the plate. Stability of the syndesmosis was then felt to be present clinically. X-ray showed good tib-fib overlap. No increase in medial clear space. The talus was aligned in the ankle mortise and the fibula was out to length. Periosteal layers were closed with 2-0 Vicryl subcutaneous tissues were closed with 2-0 Vicryl and the skin was reapproximated with doug laterally and 3-0 nylon medially. Postoperative bandaging included Xeroform, 4 x 4 gauze, Kerlix and an adequately padded posterior splint. The patient tolerated the anesthesia and the procedure well and was escorted to the recovery room with vital signs stable and vascular status intact to the right foot noted by instant capillary refill time to all digits of the right foot. Elevation. Strict instructions given for non- weightbearing to the right lower extremity. Return to the floor.
[2019-08-03] MEDS ORDERED: Bupivacaine/EPI 1:200k 0.25%PF 30 ML VIAL ONE (14:00)
[2019-08-03] MEDS ORDERED: Calcium Gluconate 1,000 MG/10 ML VIAL ONE (14:09)
--- NOTE | 2019-08-03 14:14 | Anesthesia Procedures ---
Date of Encounter: 08/03/19 Time of Encounter: 14:00 Procedures: Anesthesia - Nerve Block Procedure Date: 08/03/19 Time: 14:00 Allergies/Adv Reactions: Allergies Cyclobenzaprine Adverse Reaction (Verified 08/02/19 22:10) Vomiting Pre-op Diagnosis: right ankle fracture Surgical Procedure: right ankle ORIF Checklist: Correct Patient Identifier, Correct procedure, History checked Correct side: Right Blood Thinner: No Monitor Applied: EKG, BP, Pulse Oximetry Supplemental Oxygen via Nasal Cannula (L/min): 4 Sedation: Versed (mg): 4 Indication: Post Op Analgesia Block Type: Popliteal, Other (addcutor canal) Catheter placed: No Sterile Technique: Yes Ultrasound used: Yes Anatomy identified: Yes Visual spread of Local: Yes Blood on Needle Aspiration: No Smooth Injection of Local: Yes Pain with Injection of Local: Yes Prep: Chlorhexadine Needle: 21 x 100 mm Stimuplex Local: Ropivacaine (30ml 0.5% ropivacaine with 4 mg decadron, 20ml 0.25% ropivavaine with 4 mg decadron) Volume (cc): 50 Number of Attempts: 1 Complications: None/effective block Vitals: see nursing vitals
[2019-08-03] MEDS ORDERED: *HR* PHENYLEPHRINE 1,000 MCG/10 ML SYRINGE IVP ONE (14:31)
[2019-08-03] MEDS ORDERED: Ondansetron 4 MG/2 ML VIAL ONE (14:42)
[2019-08-03] MEDS ORDERED: ceFAZolin 2,000 MG in 0.9 % Sodium Chloride 100 ML IVPB SCH (16:00)
--- NOTE | 2019-08-03 16:41 | Anesthesia Evaluation Post Op ---
Date of Encounter: 08/03/19 Time of Encounter: 16:40 - Vital Signs Vital Signs: Vital Signs/O2 Sat/Glucose, Most Recent Temp Pulse Resp BP Pulse Ox 97.6 F 57 12 94/56 95 08/03/19 16:35 08/03/19 16:35 08/03/19 16:35 08/03/19 16:35 08/03/19 16:35 Blood Glucose* 130 - Lungs Lungs: Clear Ascult./Percussion - Airway Airway: Non-obstructed - Cardiovascular Regular Rate - Mental Status Mental Status: Asleep with brisk response to light stimulation - Pain Pain Scale: 0 - Nausea Vomiting Nausea Vomiting: Not Present - Hydration Hydration: Ice chips - Discharge PostOp Status: Transfer Patient to floor
[2019-08-03] MEDS ORDERED: Dextrose Gel 15 GM/37.5 ML TUBE PO PRN ×2 (17:03)
[2019-08-03] MEDS ORDERED: tiZANidine 4 MG TABLET PO PRN (17:03)
[2019-08-03] MEDS ORDERED: Naloxone 0.4 MG/ML INJ IVP PRN (17:03)
[2019-08-03] MEDS ORDERED: Ondansetron 4 MG/2 ML VIAL IVP PRN (17:03)
[2019-08-03] MEDS ORDERED: D5% in Water 1,000 ML IVC PRN (17:03)
[2019-08-03] MEDS ORDERED: Acetaminophen 325 MG TABLET PO PRN (17:03)
[2019-08-03] MEDS ORDERED: traMADol 50 MG TABLET PO PRN (17:03)
[2019-08-03] MEDS ORDERED: *HR* Dextrose 50 % in Water (Syg) 50 ML SYRINGE IVP PRN (17:03)
[2019-08-03] MEDS ORDERED: Venlafaxine XR (24 HR) 37.5 MG CAP.ER.24H PO SCH ×2 (21:00)
[2019-08-03] MEDS ORDERED: Gabapentin 100 MG CAPSULE PO SCH (21:00)
[2019-08-03] MEDS: Gabapentin 100 MG CAPSULE PO SCH (22:11)
[2019-08-04] MEDS ORDERED: *HR* Enoxaparin 40 MG/0.4 ML SYRINGE SQ SCH ×2 (06:00)
[2019-08-04 06:29] LABS: Hematocrit 37.9 % (35.3-44.9); Hemoglobin 12.6 g/dL (11.5-15.4); Mean Corpuscular HGB Conc 33.2 g/dL (31.6-35.5); Mean Corpuscular Hemoglobin 30.2 pg (28.0-33.3); Mean Corpuscular Volume 90.9 fL (83.0-100.0); Mean Platelet Volume 10.5 fL (9.4-12.4); Platelet Count 119 K/mcL (140-400); Red Blood Count 4.17 M/mcL (3.82-4.97)
[2019-08-04 06:48] LABS: BUN/Creatinine Ratio 23 (6-26); Blood Urea Nitrogen 14 mg/dL (8-23); Calcium 9.1 mg/dL (8.6-10.3); Carbon Dioxide 26 mEq/L (23-29); Chloride 105 mEq/L (98-107); Glucose 193 mg/dL (70-105); Osmolality,Calculated 286 (280-300); Potassium 4.2 mEq/L (3.5-5.1); Sodium 135 mEq/L (136-145); eGFR For African Americans > 60 (> 60); eGFR For Non-African Americans > 60 (> 60)
[2019-08-04] MEDS: *HR* OxyCODONE Immed Rel 5 MG TABLET PO PRN ×2 (08:41→15:22)
[2019-08-04] MEDS: Gabapentin 100 MG CAPSULE PO SCH (08:41)
[2019-08-04] MEDS: Insulin LISPRO 300 UNITS/3 ML VIAL SQ SCH ×2 (08:42→12:28)
[2019-08-04] MEDS ORDERED: Aspirin Enteric Coated 81 MG Tablet PO SCH ×2 (09:00)
--- NOTE | 2019-08-04 10:53 | Discharge Summary ---
- NOTES TO OUTPATIENT PROVIDER Notes to Outpatient Provider: Follow-up with podiatry in one week. Outpatient CT chest for the evaluation of ?PADMA nodule on CXR Date of Encounter: 08/04/19 Time of Encounter: 09:00 - Discharge Diagnosis (1) Closed trimalleolar fracture of right ankle Priority: Primary Status: Acute Qualifiers: Encounter type: initial encounter Qualified Code(s): S82.851A - Displaced trimalleolar fracture of right lower leg, initial encounter for closed fracture (2) Lung nodule Priority: Secondary Status: Chronic (3) Pre-op evaluation Priority: Secondary Status: Acute (4) Hypokalemia Priority: Secondary Status: Resolved (5) HLD (hyperlipidemia) Priority: Secondary Status: Chronic Qualifiers: Hyperlipidemia type: pure hypercholesterolemia Qualified Code(s): E78.00 - Pure hypercholesterolemia, unspecified; E78.0 - Pure hypercholesterolemia (6) Diabetes Priority: Secondary Status: Chronic Qualifiers: Diabetes mellitus type: type 2 Diabetes mellitus assisted insulin use: without watermaster use Diabetes mellitus complication status: with neurologic complications Diabetes mellitus complication detail: with unspecified neuropathy Qualified Code(s): E11.40 - Type 2 diabetes mellitus with diabetic neuropathy, unspecified (7) GERD (gastroesophageal reflux disease) Priority: Secondary Status: Chronic Qualifiers: Esophagitis presence: esophagitis presence not specified Qualified Code(s): K21.9 - Gastro-esophageal reflux disease without esophagitis (8) Anxiety Priority: Secondary Status: Chronic (9) DVT prophylaxis Priority: Secondary Status: Acute Hospital course: Ms. Fontana is a 63 year old female with history of diabetes, hyperlipidemia, obesity, chronic low back pain, who was admitted for right ankle fracture following a mechanical fall. Underwent ORIF uneventfully on 08/03 and will be discharged home on 08/04 after PT/OT evaluation as she did not want to be placed in ECF for further rehab. Xarelto 10mg QD for 21 days given for DVT prophylaxis per podiatry. She is to remain NWB on RLE and will be evaluated by podiatry in 1 week following the discharge. Of note, she had incidental finding of PADMA nodule on pre-op CXR. She was advised to follow up with CT chest as outpatient for further evaluation. Discharge discussed with: patient, nurse, case management, legal consultant - Time Spent with Patient Total time spent providing and/or coordinating discharge services: 31 mins - Discharge Medications Prescriptions: New RX: Docusate [Colace] 100 mg PO BID PRN #14 capsule PRN Reason: Constipation HYDROcodone/Acet 5/325 mg [[place] 5-325 mg] 1 tab PO Q6H PRN 4 Days #12 tab PRN Reason: Pain Rivaroxaban [Xarelto] 10 mg PO 1700 #21 tablet Continued RX: Aspirin [Lo-Dose Aspirin EC] 81 mg PO DAILY RX: metFORMIN [Glucophage] 500 mg PO DAILY RX: Esomeprazole Magnesium [Nexium] 20 mg PO DAILY RX: Triamterene/Hydrochlorothiazid [Dyazide 37.5-25 Capsule] 25 each PO DAILY RX: Atorvastatin [Lipitor] 10 mg PO HS RX: Montelukast [Singulair] 10 mg PO HS RX: Gabapentin [Neurontin] 100 mg PO BID RX: Venlafaxine [Effexor] 37.5 mg PO HS Home Medications: RX: Aspirin [Lo-Dose Aspirin EC] 81 mg PO DAILY 08/02/19 [History] RX: Atorvastatin [Lipitor] 10 mg PO HS 08/02/19 [History] RX: Esomeprazole Magnesium [Nexium] 20 mg PO DAILY 08/02/19 [History] RX: Gabapentin [Neurontin] 100 mg PO BID 08/02/19 [History] RX: Montelukast [Singulair] 10 mg PO HS 08/02/19 [History] RX: Triamterene/Hydrochlorothiazid [Dyazide 37.5-25 Capsule] 25 each PO DAILY 08/02/19 [History] RX: Venlafaxine [Effexor] 37.5 mg PO HS 08/02/19 [History] RX: metFORMIN [Glucophage] 500 mg PO DAILY 08/02/19 [History] HYDROcodone/Acet 5/325 mg [[place] 5-325 mg] 1 tab PO Q6H PRN 4 Days #12 tab 08/04/19 [Rx] RX: Docusate [Colace] 100 mg PO BID PRN #14 capsule 08/04/19 [Rx] Rivaroxaban [Xarelto] 10 mg PO 1700 #21 tablet 08/04/19 [Rx] Allergies/Adverse Reactions: Allergy/AdvReac Type Severity Reaction Status Date / Time Cyclobenzaprine AdvReac Vomiting Verified 08/02/19 22:10 Date of admission: 08/02/19 22:24 Primary care physician: Kristy Membreno CNP Consults: 08/02/19 22:16 Consult to Occupational Therapy [CONS] Routine Comment: Evaluate, develop and implement POC Reason for Consult: Patient had a fall at home resulting in right ankle fx. Please assess patient post-surgery for ambulation strength, safety, stability, and possible home assistive/rehabilitation needs for post-discharge planning. Does patient have active BEDREST order?: Yes Is patient medically & hemodynamically stable?: Yes Patient assessed for mobility or mobilized this visit?: No 08/02/19 22:18 Consult to Physical Therapy [CONS] Routine Comment: Evaluate, develop and implement POC Reason for Consult: Patient had a fall at home resulting in right ankle fx. Please assess patient post-surgery for ambulation strength, safety, stability, and possible home assistive/rehabilitation needs for post-discharge planning. Does patient have active BEDREST order?: Yes Is patient medically & hemodynamically stable?: Yes Patient assessed for mobility or mobilized this visit?: No 08/03/19 08:01 Consult to Podiatry [CONS] Routine Consulting Provider: [facility] Reason for Consult: R ankle fracture Call Completed: Yes 08/03/19 13:49 Consult to Physical Therapy [CONS] Routine Comment: Evaluate, develop and implement POC Reason for Consult: assist with non-weight bearing right LE, transfers etc. Does patient have active BEDREST order?: No Is patient medically & hemodynamically stable?: Yes 08/04/19 10:29 Consult to [facility]aster [CONS] Routine Reason for SW Consult: set up - Constitutional Vitals: Temp Pulse Resp BP Pulse Ox 97.4 F L 72 16 116/73 94 08/04/19 06:45 08/04/19 06:45 08/04/19 06:45 08/04/19 06:45 08/04/19 06:45 General appearance: Present: cooperative, mild distress, A&O X 3, pleasant, obese, answers questions appropriately Exam: General: Alert and oriented, not in acute distress. Cardiovascular:Normal S1 & S2, No JVD. Pulse regular. Lungs: clear to auscultation, no wheezes/rales Abdomen:Soft, non-tender, no rigidity. Extremities: R LE in splint Neurological:Normal cognition and motor skills. Non-focal Skin:Normal color, no rash, no lesions. - Patient Status Disposition: Home, Self-Care Functional capacity at discharge: uses cane/walker Overall status at discharge: patient is progressing back to baseline - Discharge Instructions Instructions: Diabetes Mellitus Type 2 in Adults (DC), Anxiety (DC) Follow Up With: NONE,PCP [Non-Partnered Physician] - - Diet and Activity Activity: resume usual activities as tolerated Diet: diabetic diet
--- NOTE | 2019-08-04 10:57 | Physician Discharge Referral ---
Home Health/Hosp Referral Info Transfer to: Home Health Provider in Charge Post Discharge: PCP - Diagnosis (1) Closed trimalleolar fracture of right ankle Priority: Primary Status: Acute (2) Lung nodule Priority: Secondary Status: Chronic (3) Pre-op evaluation Priority: Secondary Status: Acute (4) Hypokalemia Priority: Secondary Status: Resolved (5) HLD (hyperlipidemia) Priority: Secondary Status: Chronic (6) Diabetes Priority: Secondary Status: Chronic (7) GERD (gastroesophageal reflux disease) Priority: Secondary Status: Chronic (8) Anxiety Priority: Secondary Status: Chronic (9) DVT prophylaxis Priority: Secondary Status: Acute - Respiratory Orders Smoking Cessation: Smoking cessation has been advised. For more information, call the [employer] Tobacco Quit Line at 4-738-VQAQ-NOW. - Diet/Nutrition Diet/Nutrition Orders: No Concentrated Sweets - Activity Activity Orders: Walker - Services Needed Following services are medically necessary services: Home Health Aide, Physical Therapy, Occupational Therapy - Transfer Medications Prescriptions: Docusate [Colace] 100 mg PO BID PRN #14 capsule PRN Reason: Constipation Transmission Status: Pending to [facility] HYDROcodone/Acet 5/325 mg [[place] 5-325 mg] 1 tab PO Q6H PRN 4 Days #12 tab PRN Reason: Pain Transmission Status: Pending to [facility] Rivaroxaban [Xarelto] 10 mg PO 1700 #21 tablet Transmission Status: Pending to [facility] Home Medications: Aspirin [Lo-Dose Aspirin EC] 81 mg PO DAILY 08/02/19 [History] Atorvastatin [Lipitor] 10 mg PO HS 08/02/19 [History] Esomeprazole Magnesium [Nexium] 20 mg PO DAILY 08/02/19 [History] Gabapentin [Neurontin] 100 mg PO BID 08/02/19 [History] Montelukast [Singulair] 10 mg PO HS 08/02/19 [History] Triamterene/Hydrochlorothiazid [Dyazide 37.5-25 Capsule] 25 each PO DAILY 08/02/19 [History] Venlafaxine [Effexor] 37.5 mg PO HS 08/02/19 [History] metFORMIN [Glucophage] 500 mg PO DAILY 08/02/19 [History] Docusate [Colace] 100 mg PO BID PRN #14 capsule 08/04/19 [Rx] HYDROcodone/Acet 5/325 mg [[place] 5-325 mg] 1 tab PO Q6H PRN 4 Days #12 tab 08/04/19 [Rx] Rivaroxaban [Xarelto] 10 mg PO 1700 #21 tablet 08/04/19 [Rx] Allergies/Adverse Reactions: Allergy/AdvReac Type Severity Reaction Status Date / Time Cyclobenzaprine AdvReac Vomiting Verified 08/02/19 22:10 Certification: Further, I certify that my clinical findings support that this patient is homebound (i.e. absences from home require considerable and taxing effort and are for medical reasons or anabaptism services or infrequently or short duration when for other reasons) because: Homebound Reason: Patient requires assistance of a person or device to safely leave home Attestation: My signature below is to certify that this patient is under my care and that I, or nurse practitioner, or a physician's operations assistant working with me, has a [id number] encounter with this patient.
[2019-08-04 16:17] VITALS: BP 124/81
--- NOTE | 2019-08-04 17:59 | Electrocardiograph Report ---
[address] [place], [place] [address] Test Date: 2019-08-02 Pat Name: Jolene Fontana Department: 114 Room: [facility] Gender: F Engineering Faculty Member: : 1955 Requested By: Michele Porter Order Number: [id number] Reading MD: Kristina Meíja Measurements Intervals [place] Rate: 77 P: 47 FL: 185 QRS: 8 QRSD: 90 T: 2 QT: 375 QTc: 407 Interpretive Statements SINUS RHYTHM Electronically Signed On 08-04-2019 17:58:01 EDT by Kristina Mejía
[2019-08-04] MEDS ORDERED: ceFAZolin 2,000 MG in 0.9 % Sodium Chloride 100 ML IVPB SCH (22:00)
== END 2019-08-04 15:50 | disposition home health service (06) | DRG 494 ==
LOC: 3NENU → SUATTDRO 22:24
PROVIDERS: ADMIT Pharmacist; ATTEND Internal Medicine

== ENCOUNTER 2021-08-24 15:20 | Inpatient (IN) ==
[2021-08-24 16:25] LABS: Basophils % 0.1 %; Eosinophils % 0.2 %; Hematocrit 44.5 % (35.3-44.9); Hemoglobin 14.5 g/dL (11.5-15.4); Immature Granulocytes % 0.8 % (0-4); Lymphocytes # 0.8 K/mcL (0.6-4.6); Lymphocytes % 5.2 %; Mean Corpuscular HGB Conc 32.6 g/dL (31.6-35.5); Mean Corpuscular Hemoglobin 26.8 pg (28.0-33.3); Mean Corpuscular Volume 82.1 fL (83.0-100.0); Mean Platelet Volume 10.4 fL (9.4-12.4); Monocytes # 0.3 K/mcL (0.0-1.3); Monocytes % 1.7 %; Neutrophils # 14.3 K/mcL (1.6-8.9); Platelet Count 227 K/mcL (140-400); Red Blood Count 5.42 M/mcL (3.82-4.97); Red Cell Distribution Width 14.7 % (11.5-14.5); White Blood Count 15.6 K/mcL (4.3-11.1)
[2021-08-24 16:32] LABS: INR 1.4; Prothrombin Time 15.1 Seconds (9.4-12.1)
[2021-08-24 16:35] LABS: Activated Partial Thrombo Time 29.2 Seconds (26.0-36.0)
[2021-08-24 17:08] LABS: Troponin I 0.13 ng/mL (< 0.04)
[2021-08-24] MEDS ORDERED: Isovue-370 500 ML BOTTLE IVP ONE (17:09)
[2021-08-24 17:43] LABS: BUN/Creatinine Ratio 15 (6-26); Blood Urea Nitrogen 9 mg/dL (8-23); Carbon Dioxide 26 mEq/L (23-29); Chloride 96 mEq/L (98-107); Glucose 144 mg/dL (70-105); Osmolality,Calculated 277 (280-300); Potassium 2.8 mEq/L (3.5-5.1); Sodium 133 mEq/L (136-145); eGFR For African Americans > 60 (> 60); eGFR For Non-African Americans > 60 (> 60)
[2021-08-24] MEDS ORDERED: 0.9 % Sodium Chloride 1,000 ML IVC ONE (20:04)
[2021-08-24] MEDS ORDERED: Aspirin 325 MG TABLET PO ONE (20:05)
[2021-08-24] MEDS ORDERED: Potassium Chloride Elixir 20 MEQ/15 ML UDC PO ONE (20:05)
[2021-08-24] MEDS ORDERED: Naloxone 0.4 MG/ML INJ IVP PRN (21:49)
[2021-08-24] MEDS ORDERED: Ipratropium/Albuterol Neb 3 ML IH PRN (21:54)
[2021-08-24] MEDS ORDERED: D5% in Water 1,000 ML IVC PRN (21:55)
[2021-08-24] MEDS ORDERED: *HR* Dextrose 50 % in Water (Syg) 50 ML SYRINGE IVP PRN (21:55)
[2021-08-24] MEDS ORDERED: Dextrose Gel 15 GM/37.5 ML TUBE PO PRN ×2 (21:55)
[2021-08-24] MEDS ORDERED: Perflutren Lipid Microsphere 1.3 ML in 0.9 % Sodium Chloride 8.7 ML IVP PRN (22:07)
[2021-08-24] MEDS: Acetaminophen 325 MG TABLET PO PRN (22:39)
[2021-08-24] MEDS: Cefepime HCl 2,000 MG in 0.9 % Sodium Chloride Mini Bag 100 ML IVPB SCH (22:41)
[2021-08-24] MEDS: 0.9 % Sodium Chloride 1,000 ML IVC SCH (22:48)
[2021-08-24] MEDS: Insulin LISPRO 300 UNITS/3 ML VIAL SUBQ SCH (22:49)
[2021-08-24] MEDS ORDERED: Vancomycin 1,750 MG/517.5 ML IV.SOLN IVPB ONE (23:00)
[2021-08-24 23:30] LABS: Estimated Average Glucose 209 mg/dl; Hemoglobin A1C 8.9 %
[2021-08-24 23:45] LABS: Bilirubin,Urine Negative (Negative); Blood,Urine Negative (Negative); Clarity,Urine Clear (Clear); Color,Urine Colorless (Yellow); Glucose,Urine (UA) Normal (Normal); Ketones,Urine Negative (Negative); Leukocyte Esterase,Urine Negative (Negative); Nitrite,Urine Negative (Negative); PH,Urine 6.5 pH Units (5.0-8.0); Protein,Urine Negative (Neg-Trace); Specific Gravity,Urine 1.018 (1.010-1.025); Urobilinogen,Urine Normal (Normal)
[2021-08-24] MEDS ORDERED: Fluticasone Propionate Nasal 50 MCG/SPRAY BOTTLE NS PRN (23:50)
[2021-08-24] MEDS ORDERED: *HR* OxyCODONE Immed Rel 5 MG TABLET PO PRN (23:50)
[2021-08-24] MEDS ORDERED: Loratadine 10 MG TABLET PO PRN (23:50)
[2021-08-25 00:14] LABS: Adenovirus Not Detected (Not Detect); Coronavirus 229E Not Detected (Not Detect); Coronavirus HKU1 Not Detected (Not Detect); Coronavirus NL63 Not Detected (Not Detect); Coronavirus OC43 Not Detected (Not Detect); Human Metapneumovirus Not Detected (Not Detect); Human Rhinovirus/Enterovirus Not Detected (Not Detect); Influenza A Subtype 2009 H1 Not Detected (Not Detect); SARS-CoV-2 Not Detected (Not Detect)
[2021-08-25 00:15] LABS: Bordetella Pertussis Not Detected (Not Detect); Chlamydophila pneumoniae Not Detected (Not Detect); Influenza B Not Detected (Not Detect); Mycoplasma pneumoniae Not Detected (Not Detect); Parainfluenza Virus 1 Not Detected (Not Detect); Parainfluenza Virus 2 Not Detected (Not Detect); Parainfluenza Virus 3 Not Detected (Not Detect); Parainfluenza Virus 4 Not Detected (Not Detect); Respiratory Syncytial Virus Not Detected (Not Detect)
[2021-08-25 02:17] LABS: Basophils % 0.2 %; Eosinophils # 0.1 K/mcL (0.0-0.6); Eosinophils % 0.6 %; Hematocrit 35.9 % (35.3-44.9); Hemoglobin 11.7 g/dL (11.5-15.4); Immature Granulocytes % 1.1 % (0-4); Lymphocytes # 0.8 K/mcL (0.6-4.6); Mean Corpuscular HGB Conc 32.6 g/dL (31.6-35.5); Mean Corpuscular Hemoglobin 26.7 pg (28.0-33.3); Mean Platelet Volume 9.9 fL (9.4-12.4); Monocytes # 0.2 K/mcL (0.0-1.3); Monocytes % 2.1 %; Neutrophils # 10.1 K/mcL (1.6-8.9); Platelet Count 146 K/mcL (140-400); Red Blood Count 4.38 M/mcL (3.82-4.97); Red Cell Distribution Width 14.8 % (11.5-14.5); White Blood Count 11.4 K/mcL (4.3-11.1)
[2021-08-25 02:24] LABS: INR 1.6; Prothrombin Time 17.4 Seconds (9.4-12.1)
[2021-08-25 02:47] LABS: Alanine Aminotransferase 8 Units/L (7-52); Albumin 2.9 g/dL (3.5-5.7); Albumin/Globulin Ratio 0.9 (1.1-2.2); Alkaline Phosphatase 49 Units/L (34-104); Aspartate Amino Transferase 12 Units/L (13-39); BUN/Creatinine Ratio 15 (6-26); Bilirubin,Direct 0.2 mg/dL (0.0-0.2); Bilirubin,Indirect 0.8 mg/dL (0.0-1.0); Blood Urea Nitrogen 7 mg/dL (8-23); Calcium 7.7 mg/dL (8.6-10.3); Carbon Dioxide 21 mEq/L (23-29); Chloride 106 mEq/L (98-107); Chol/HDL Ratio 3.9 (0-4.9); Cholesterol 71 mg/dL (< 200); Globulin 3.1 g/dL (2.4-3.5); Glucose 145 mg/dL (70-105); HDL Cholesterol 18 mg/dL (40-59); LDL Cholesterol,Calculated 35 mg/dL (< 100); Magnesium 1.6 mg/dL (1.6-2.6); Osmolality,Calculated 281 (280-300); Phosphorous 2.5 mg/dL (2.7-4.5); Potassium 3.6 mEq/L (3.5-5.1); Sodium 135 mEq/L (136-145); Triglycerides 91 mg/dL (< 150); Troponin I < 0.03 ng/mL (< 0.04); eGFR For African Americans > 60 (> 60); eGFR For Non-African Americans > 60 (> 60)
[2021-08-25] MEDS: Acetaminophen 325 MG TABLET PO PRN ×3 (06:38→20:07)
[2021-08-25] MEDS: 0.9 % Sodium Chloride 1,000 ML IVC SCH (06:39)
[2021-08-25] MEDS: Budesonide/Formoterol 80/4.5 1 PUFF INH IH SCH ×2 (07:43→20:15)
[2021-08-25] MEDS: Gabapentin 300 MG CAPSULE PO SCH ×2 (08:58→21:17)
[2021-08-25] MEDS: Cefepime HCl 2,000 MG in 0.9 % Sodium Chloride Mini Bag 100 ML IVPB SCH ×2 (08:59→22:03)
[2021-08-25] MEDS: Aspirin Enteric Coated 81 MG Tablet PO SCH (08:59)
[2021-08-25] MEDS: Insulin LISPRO 300 UNITS/3 ML VIAL SUBQ SCH ×4 (09:03→20:00)
[2021-08-25] MEDS: Vancomycin 1,500 MG/265 ML IV.SOLN IVPB SCH (11:16)
[2021-08-25] MEDS: Venlafaxine XR (24 HR) 37.5 MG CAP.ER.24H PO SCH (21:17)
[2021-08-25] MEDS ORDERED: Albumin 25% 25gram/100mL 25 GM/100 ML IV.SOLN IVPB ONE (21:25)
[2021-08-26] MEDS: Vancomycin 1,500 MG/265 ML IV.SOLN IVPB SCH ×2 (00:26→11:42)
[2021-08-26 01:52] LABS: BUN/Creatinine Ratio 11 (6-26); Blood Urea Nitrogen 5 mg/dL (8-23); Calcium 8.1 mg/dL (8.6-10.3); Carbon Dioxide 23 mEq/L (23-29); Chloride 103 mEq/L (98-107); Glucose 113 mg/dL (70-105); Magnesium 1.5 mg/dL (1.6-2.6); Osmolality,Calculated 278 (280-300); Phosphorous 2.8 mg/dL (2.7-4.5); Potassium 3.3 mEq/L (3.5-5.1); Sodium 135 mEq/L (136-145); eGFR For African Americans > 60 (> 60); eGFR For Non-African Americans > 60 (> 60)
[2021-08-26] MEDS: Acetaminophen 325 MG TABLET PO PRN ×3 (01:58→22:58)
[2021-08-26 03:22] LABS: Hemoglobin 11.1 g/dL (11.5-15.4); Red Cell Distribution Width 14.7 % (11.5-14.5)
[2021-08-26 03:24] LABS: Basophils % 0.2 %; Eosinophils # 0.2 K/mcL (0.0-0.6); Eosinophils % 1.9 %; Hematocrit 33.2 % (35.3-44.9); Immature Granulocytes % 0.9 % (0-4); Immature Platelets 3.1 % (1.1-6.1); Lymphocytes # 0.6 K/mcL (0.6-4.6); Lymphocytes % 6.7 %; Mean Corpuscular HGB Conc 33.4 g/dL (31.6-35.5); Mean Corpuscular Hemoglobin 26.7 pg (28.0-33.3); Mean Platelet Volume 10.4 fL (9.4-12.4); Monocytes # 0.1 K/mcL (0.0-1.3); Monocytes % 1.4 %; Neutrophils # 7.6 K/mcL (1.6-8.9); Platelet Count 114 K/mcL (140-400); Red Blood Count 4.15 M/mcL (3.82-4.97); Segmented Neutrophils % 88.9 %; White Blood Count 8.5 K/mcL (4.3-11.1)
[2021-08-26] MEDS: Insulin LISPRO 300 UNITS/3 ML VIAL SUBQ SCH ×4 (07:03→19:49)
[2021-08-26] MEDS: Budesonide/Formoterol 80/4.5 1 PUFF INH IH SCH ×2 (07:16→21:24)
[2021-08-26] MEDS: Gabapentin 300 MG CAPSULE PO SCH ×2 (08:28→19:48)
[2021-08-26] MEDS: Cefepime HCl 2,000 MG in 0.9 % Sodium Chloride Mini Bag 100 ML IVPB SCH ×2 (08:28→19:48)
[2021-08-26] MEDS: Aspirin Enteric Coated 81 MG Tablet PO SCH (08:28)
[2021-08-26] MEDS: Venlafaxine XR (24 HR) 37.5 MG CAP.ER.24H PO SCH (19:48)
[2021-08-26] MEDS: Ondansetron 4 MG/2 ML VIAL IVP PRN (19:56)
[2021-08-26] MEDS: Vancomycin 2,000 MG/520 ML IV.SOLN IVPB SCH (22:58)
[2021-08-27 06:12] LABS: BUN/Creatinine Ratio 11 (6-26); Blood Urea Nitrogen 5 mg/dL (8-23); Calcium 8.1 mg/dL (8.6-10.3); Carbon Dioxide 28 mEq/L (23-29); Chloride 101 mEq/L (98-107); Glucose 142 mg/dL (70-105); Osmolality,Calculated 280 (280-300); Potassium 3.1 mEq/L (3.5-5.1); Sodium 135 mEq/L (136-145); eGFR For African Americans > 60 (> 60); eGFR For Non-African Americans > 60 (> 60)
[2021-08-27 06:14] LABS: Basophils % 0.5 %; Eosinophils # 0.2 K/mcL (0.0-0.6); Hemoglobin 10.8 g/dL (11.5-15.4); Immature Granulocytes % 1.8 % (0-4); Lymphocytes # 0.5 K/mcL (0.6-4.6); Lymphocytes % 9.5 %; Mean Corpuscular HGB Conc 32.7 g/dL (31.6-35.5); Mean Corpuscular Hemoglobin 27.5 pg (28.0-33.3); Mean Platelet Volume 9.8 fL (9.4-12.4); Monocytes # 0.2 K/mcL (0.0-1.3); Monocytes % 3.5 %; Neutrophils # 4.4 K/mcL (1.6-8.9); Platelet Count 108 K/mcL (140-400); Red Blood Count 3.93 M/mcL (3.82-4.97); Red Cell Distribution Width 14.6 % (11.5-14.5); Segmented Neutrophils % 80.7 %; White Blood Count 5.5 K/mcL (4.3-11.1)
[2021-08-27] MEDS: Budesonide/Formoterol 80/4.5 1 PUFF INH IH SCH ×2 (07:42→19:34)
[2021-08-27] MEDS: Aspirin Enteric Coated 81 MG Tablet PO SCH (08:33)
[2021-08-27] MEDS: Gabapentin 300 MG CAPSULE PO SCH ×2 (08:33→22:31)
[2021-08-27] MEDS: Cefepime HCl 2,000 MG in 0.9 % Sodium Chloride Mini Bag 100 ML IVPB SCH ×2 (08:41→22:32)
[2021-08-27] MEDS: Insulin LISPRO 300 UNITS/3 ML VIAL SUBQ SCH ×4 (08:48→21:12)
[2021-08-27] MEDS ORDERED: 0.9 % Sodium Chloride 1,000 ML IVC ONE (08:48)
[2021-08-27] MEDS ORDERED: Ketorolac 15 MG/ML VIAL IVP PRN (12:36)
[2021-08-27] MEDS: *HR* OxyCODONE/APAP 5/325 TABLET PO PRN ×2 (13:21→18:12)
[2021-08-27] MEDS: Ondansetron 4 MG/2 ML VIAL IVP PRN (13:28)
[2021-08-27] MEDS: Vancomycin 2,000 MG/520 ML IV.SOLN IVPB SCH ×2 (13:53→23:10)
[2021-08-27] MEDS ORDERED: Ondansetron ODT 4 MG TAB.RAPDIS SL PRN (21:36)
[2021-08-27] MEDS: Venlafaxine XR (24 HR) 37.5 MG CAP.ER.24H PO SCH (22:31)
[2021-08-28 02:11] LABS: Basophils % 0.5 %; Eosinophils # 0.2 K/mcL (0.0-0.6); Eosinophils % 5.7 %; Hematocrit 33.8 % (35.3-44.9); Immature Granulocytes % 1.4 % (0-4); Lymphocytes # 0.4 K/mcL (0.6-4.6); Lymphocytes % 9.5 %; Mean Corpuscular HGB Conc 32.5 g/dL (31.6-35.5); Mean Corpuscular Hemoglobin 27.2 pg (28.0-33.3); Mean Corpuscular Volume 83.7 fL (83.0-100.0); Monocytes # 0.2 K/mcL (0.0-1.3); Monocytes % 5.7 %; Neutrophils # 3.2 K/mcL (1.6-8.9); Platelet Count 115 K/mcL (140-400); Red Blood Count 4.04 M/mcL (3.82-4.97); Red Cell Distribution Width 14.6 % (11.5-14.5); Segmented Neutrophils % 77.2 %; White Blood Count 4.2 K/mcL (4.3-11.1)
[2021-08-28 02:29] LABS: Blood Urea Nitrogen 3 mg/dL (8-23); Calcium 7.6 mg/dL (8.6-10.3); Carbon Dioxide 26 mEq/L (23-29); Chloride 101 mEq/L (98-107); Glucose 117 mg/dL (70-105); Osmolality,Calculated 276 (280-300); Potassium 3.1 mEq/L (3.5-5.1); Sodium 134 mEq/L (136-145)
[2021-08-28 03:18] LABS: BUN/Creatinine Ratio 9 (6-26); eGFR For African Americans > 60 (> 60); eGFR For Non-African Americans > 60 (> 60)
[2021-08-28] MEDS: Acetaminophen 325 MG TABLET PO PRN (05:41)
[2021-08-28 06:56] VITALS: BP 107/69; PULSE 89; TEMP 98.5; O2SAT 96
[2021-08-28] MEDS: Budesonide/Formoterol 80/4.5 1 PUFF INH IH SCH (07:35)
[2021-08-28] MEDS: Aspirin Enteric Coated 81 MG Tablet PO SCH (07:45)
[2021-08-28] MEDS: Gabapentin 300 MG CAPSULE PO SCH (07:45)
[2021-08-28] MEDS: Insulin LISPRO 300 UNITS/3 ML VIAL SUBQ SCH (07:51)
== END 2021-08-28 10:55 | disposition home or self-care (01) | DRG 871 ==
LOC: 3BNU 15:20 → EMEROOARM 15:20 → 3BNU 19:45 → SUATTDRO 21:49
PROVIDERS: ADMIT Internal Medicine; ATTEND Internal Medicine

== ENCOUNTER 2021-09-19 12:28 | Inpatient (IN) ==
[2021-09-19] MEDS ORDERED: Ondansetron 4 MG/2 ML VIAL IVP ONE (13:04)
[2021-09-19] MEDS ORDERED: 0.9 % Sodium Chloride 1,000 ML IVC ONE ×2 (13:04→14:35)
[2021-09-19 14:17] LABS: Mean Corpuscular Volume 82.5 fL (83.0-100.0)
[2021-09-19 14:19] LABS: Hemoglobin 11.9 g/dL (11.5-15.4); Mean Corpuscular Hemoglobin 28.1 pg (28.0-33.3); Platelet Count 122 K/mcL (140-400); Red Blood Count 4.24 M/mcL (3.82-4.97); Red Cell Distribution Width 16.3 % (11.5-14.5); White Blood Count 1.3 K/mcL (4.3-11.1)
[2021-09-19 14:43] LABS: Lymphocytes # 0.4 K/mcL (0.6-4.6); Monocytes # 0.3 K/mcL (0.0-1.3); Neutrophils # 0.5 K/mcL (1.6-8.9); Platelet Estimate Decreased (Normal)
[2021-09-19 14:44] LABS: Anisocytosis 1+ (Not Present)
[2021-09-19] MEDS ORDERED: Naloxone 0.4 MG/ML INJ IVP PRN (15:18)
[2021-09-19 15:56] LABS: BUN/Creatinine Ratio 17 (6-26); Blood Urea Nitrogen 7 mg/dL (8-23); Calcium 8.6 mg/dL (8.6-10.3); Carbon Dioxide 24 mEq/L (23-29); Chloride 101 mEq/L (98-107); Glucose 118 mg/dL (70-105); Lipase 42 Units/L (11-82); Osmolality,Calculated 285 (280-300); Potassium 3.5 mEq/L (3.5-5.1); Sodium 138 mEq/L (136-145); Troponin I < 0.03 ng/mL (< 0.04); eGFR For African Americans > 60 (> 60); eGFR For Non-African Americans > 60 (> 60)
[2021-09-19 15:57] LABS: Bacteria,Urine Few per hpf (None-Few); Bilirubin,Urine Negative (Negative); Blood,Urine Negative (Negative); Clarity,Urine Turbid (Clear); Color,Urine Light-Orange (Yellow); Glucose,Urine (UA) Normal (Normal); Ketones,Urine 20 mg/dL (Negative); Leukocyte Esterase,Urine Large (Negative); Mucus,Urine Few per lpf (None-Few); Nitrite,Urine Negative (Negative); PH,Urine 6.5 pH Units (5.0-8.0); Protein,Urine 30 mg/dL (Neg-Trace); RBC,Urine 0-3 per hpf (0-3); Specific Gravity,Urine 1.024 (1.010-1.025); Squamous Epithelial Cell,Urine Few per hpf (None-Few); WBC,Urine 30-50 per hpf (0-3)
[2021-09-19] MEDS ORDERED: Lidocaine Viscous Oral Soln 15 ML SOLUTION MM PRN (16:14)
[2021-09-19] MEDS: Pantoprazole 40 MG VIAL IVP SCH (16:50)
[2021-09-19] MEDS: 0.9 % Sodium Chloride 1,000 ML IVC SCH (17:52)
[2021-09-19] MEDS: Morphine Sulfate 2 MG/ML SYRINGE IVP PRN (20:38)
[2021-09-20] MEDS: Morphine Sulfate 2 MG/ML SYRINGE IVP PRN ×4 (02:07→19:08)
[2021-09-20 02:20] LABS: BUN/Creatinine Ratio 15 (6-26); Blood Urea Nitrogen 5 mg/dL (8-23); Calcium 7.8 mg/dL (8.6-10.3); Carbon Dioxide 21 mEq/L (23-29); Chloride 108 mEq/L (98-107); Glucose 93 mg/dL (70-105); Magnesium 1.6 mg/dL (1.6-2.6); Osmolality,Calculated 283 (280-300); Potassium 3.4 mEq/L (3.5-5.1); Sodium 138 mEq/L (136-145); eGFR For African Americans > 60 (> 60); eGFR For Non-African Americans > 60 (> 60)
[2021-09-20 02:23] LABS: Basophils % 1.6 %; Eosinophils % 1.6 %; Hematocrit 31.1 % (35.3-44.9); Hemoglobin 10.5 g/dL (11.5-15.4); Immature Platelets 3.6 % (1.1-6.1); Lymphocytes # 0.2 K/mcL (0.6-4.6); Lymphocytes % 16.3 %; Mean Corpuscular HGB Conc 33.8 g/dL (31.6-35.5); Mean Corpuscular Hemoglobin 28.4 pg (28.0-33.3); Mean Corpuscular Volume 84.1 fL (83.0-100.0); Mean Platelet Volume 10.1 fL (9.4-12.4); Monocytes # 0.2 K/mcL (0.0-1.3); Monocytes % 19.5 %; Neutrophils # 0.7 K/mcL (1.6-8.9); Red Cell Distribution Width 16.6 % (11.5-14.5); White Blood Count 1.2 K/mcL (4.3-11.1)
[2021-09-20 02:26] LABS: Platelet Count 99 K/mcL (140-400)
[2021-09-20 02:33] LABS: INR 1.4; Prothrombin Time 16.1 Seconds (9.4-12.1)
[2021-09-20] MEDS: 0.9 % Sodium Chloride 1,000 ML IVC SCH (06:32)
[2021-09-20] MEDS: Ondansetron 4 MG/2 ML VIAL IVP PRN (07:45)
[2021-09-20] MEDS ORDERED: cefTRIAXone 1,000 MG in 0.9 % Sodium Chloride Mini Bag 100 ML IVPB ONE (08:35)
[2021-09-20] MEDS: Pantoprazole 40 MG VIAL IVP SCH (08:57)
[2021-09-20] MEDS ORDERED: Lidocaine -MPF 2% 5 ML VIAL ONE (14:18)
[2021-09-20] MEDS ORDERED: *HR* Propofol 200 MG/20 ML VIAL IVP ONE (14:39)
[2021-09-21] MEDS: Morphine Sulfate 2 MG/ML SYRINGE IVP PRN ×3 (04:03→22:34)
[2021-09-21 07:53] LABS: Hematocrit 35.5 % (35.3-44.9); Hemoglobin 11.3 g/dL (11.5-15.4); Mean Corpuscular HGB Conc 31.8 g/dL (31.6-35.5); Mean Corpuscular Hemoglobin 27.4 pg (28.0-33.3); Mean Platelet Volume 9.7 fL (9.4-12.4); Platelet Count 102 K/mcL (140-400); Red Blood Count 4.13 M/mcL (3.82-4.97); Red Cell Distribution Width 17.9 % (11.5-14.5); White Blood Count 1.3 K/mcL (4.3-11.1)
[2021-09-21] MEDS: Pantoprazole 40 MG VIAL IVP SCH (08:03)
[2021-09-21 08:11] LABS: BUN/Creatinine Ratio 8 (6-26); Blood Urea Nitrogen 3 mg/dL (8-23); Calcium 8.4 mg/dL (8.6-10.3); Carbon Dioxide 23 mEq/L (23-29); Chloride 106 mEq/L (98-107); Glucose 113 mg/dL (70-105); Osmolality,Calculated 285 (280-300); Potassium 3.1 mEq/L (3.5-5.1); Sodium 139 mEq/L (136-145); eGFR For African Americans > 60 (> 60); eGFR For Non-African Americans > 60 (> 60)
[2021-09-21] MEDS ORDERED: *HR* Dextrose 50 % in Water (Syg) 50 ML SYRINGE IVP PRN (12:10)
[2021-09-21] MEDS ORDERED: Dextrose Gel 15 GM/37.5 ML TUBE PO PRN ×2 (12:10)
[2021-09-21] MEDS ORDERED: Ipratropium/Albuterol Neb 3 ML IH PRN (12:10)
[2021-09-21] MEDS ORDERED: D5% in Water 1,000 ML IVC PRN (12:10)
[2021-09-21] MEDS: Insulin LISPRO 300 UNITS/3 ML VIAL SUBQ SCH (16:35)
[2021-09-21] MEDS: Ringers Solution, Lactated 1,000 ML IVC SCH (18:09)
[2021-09-21] MEDS: Potassium Chloride Elixir 20 MEQ/15 ML UDC GTUBE SCH ×2 (18:09→21:02)
[2021-09-21] MEDS: Gabapentin 300 MG CAPSULE GTUBE SCH (20:59)
[2021-09-21] MEDS: Ondansetron 4 MG/2 ML VIAL IVP PRN (22:34)
[2021-09-22] MEDS: Insulin LISPRO 300 UNITS/3 ML VIAL SUBQ SCH ×4 (02:09→18:29)
[2021-09-22] MEDS: Ringers Solution, Lactated 1,000 ML IVC SCH (05:06)
[2021-09-22 06:33] LABS: Mean Corpuscular Volume 85.3 fL (83.0-100.0); Red Cell Distribution Width 18.3 % (11.5-14.5)
[2021-09-22 06:36] LABS: Basophils % 1.1 %; Eosinophils % 1.1 %; Hematocrit 30.8 % (35.3-44.9); Immature Platelets 2.6 % (1.1-6.1); Lymphocytes # 0.2 K/mcL (0.6-4.6); Mean Corpuscular HGB Conc 32.5 g/dL (31.6-35.5); Mean Corpuscular Hemoglobin 27.7 pg (28.0-33.3); Mean Platelet Volume 9.9 fL (9.4-12.4); Monocytes # 0.2 K/mcL (0.0-1.3); Monocytes % 26.4 %; Neutrophils # 0.4 K/mcL (1.6-8.9); Platelet Count 102 K/mcL (140-400); Red Blood Count 3.61 M/mcL (3.82-4.97); Segmented Neutrophils % 48.4 %
[2021-09-22 06:43] LABS: White Blood Count 0.9 K/mcL (4.3-11.1)
[2021-09-22 06:58] LABS: Anisocytosis 1+ (Not Present); Large Platelets Present (Not Present); Platelet Estimate Slight Decrease (Normal)
[2021-09-22] MEDS: Gabapentin 300 MG CAPSULE GTUBE SCH ×2 (07:33→21:33)
[2021-09-22 07:52] LABS: Alanine Aminotransferase 7 Units/L (7-52); Albumin 2.9 g/dL (3.5-5.7); Albumin/Globulin Ratio 1.1 (1.1-2.2); Alkaline Phosphatase 56 Units/L (34-104); Aspartate Amino Transferase 20 Units/L (13-39); BUN/Creatinine Ratio 9 (6-26); Bilirubin,Direct 0.2 mg/dL (0.0-0.2); Bilirubin,Indirect 0.6 mg/dL (0.0-1.0); Bilirubin,Total 0.8 mg/dL (0.3-1.0); Blood Urea Nitrogen 3 mg/dL (8-23); Carbon Dioxide 22 mEq/L (23-29); Chloride 110 mEq/L (98-107); Ferritin 246 ng/mL (10-120); Globulin 2.7 g/dL (2.4-3.5); Glucose 132 mg/dL (70-105); Magnesium 1.8 mg/dL (1.6-2.6); Osmolality,Calculated 288 (280-300); Potassium 3.7 mEq/L (3.5-5.1); Sodium 140 mEq/L (136-145); Total Protein 5.6 g/dL (6.4-8.9); eGFR For African Americans > 60 (> 60); eGFR For Non-African Americans > 60 (> 60)
[2021-09-22 07:57] LABS: Folate 4.8 ng/mL (3.0-16.0)
[2021-09-22] MEDS: Loratadine 10 MG TABLET GTUBE SCH (09:30)
[2021-09-22] MEDS: Aspirin 81 MG TAB.CHEW GTUBE SCH (09:30)
[2021-09-22] MEDS: Pantoprazole 40 MG VIAL IVP SCH (17:54)
[2021-09-23] MEDS: Insulin LISPRO 300 UNITS/3 ML VIAL SUBQ SCH ×5 (00:37→23:43)
[2021-09-23 05:49] LABS: Basophils % 0.9 %; Hemoglobin 10.2 g/dL (11.5-15.4); Immature Granulocytes % 0.9 % (0-4); Red Cell Distribution Width 18.6 % (11.5-14.5)
[2021-09-23 05:50] LABS: Eosinophils % 1.8 %; Lymphocytes # 0.2 K/mcL (0.6-4.6); Lymphocytes % 19.8 %; Mean Corpuscular HGB Conc 32.9 g/dL (31.6-35.5); Mean Corpuscular Hemoglobin 27.9 pg (28.0-33.3); Mean Corpuscular Volume 84.7 fL (83.0-100.0); Mean Platelet Volume 9.4 fL (9.4-12.4); Monocytes # 0.3 K/mcL (0.0-1.3); Monocytes % 25.2 %; Neutrophils # 0.6 K/mcL (1.6-8.9); Red Blood Count 3.66 M/mcL (3.82-4.97); Segmented Neutrophils % 51.4 %; White Blood Count 1.1 K/mcL (4.3-11.1)
[2021-09-23 05:56] LABS: Platelet Count 99 K/mcL (140-400)
[2021-09-23 05:59] LABS: BUN/Creatinine Ratio 6 (6-26); Blood Urea Nitrogen 2 mg/dL (8-23); Calcium 8.1 mg/dL (8.6-10.3); Carbon Dioxide 29 mEq/L (23-29); Chloride 105 mEq/L (98-107); Glucose 141 mg/dL (70-105); Magnesium 1.6 mg/dL (1.6-2.6); Osmolality,Calculated 285 (280-300); Potassium 3.1 mEq/L (3.5-5.1); Sodium 138 mEq/L (136-145); eGFR For African Americans > 60 (> 60); eGFR For Non-African Americans > 60 (> 60)
[2021-09-23] MEDS: Pantoprazole 40 MG VIAL IVP SCH ×2 (06:06→18:21)
[2021-09-23 06:41] LABS: Platelet Estimate Decreased (Normal); Reactive Lymphocytes Present (Not Present)
[2021-09-23] MEDS: Aspirin 81 MG TAB.CHEW GTUBE SCH (09:14)
[2021-09-23] MEDS: Loratadine 10 MG TABLET GTUBE SCH (09:14)
[2021-09-23] MEDS: Gabapentin 300 MG CAPSULE GTUBE SCH ×2 (09:14→21:22)
[2021-09-23] MEDS: Potassium Chloride Elixir 20 MEQ/15 ML UDC GTUBE SCH ×2 (09:14→21:22)
[2021-09-23] MEDS: Morphine Sulfate 2 MG/ML SYRINGE IVP PRN (23:42)
[2021-09-24] MEDS: Morphine Sulfate 2 MG/ML SYRINGE IVP PRN ×2 (04:59→13:50)
[2021-09-24] MEDS: Pantoprazole 40 MG VIAL IVP SCH ×2 (05:08→18:05)
[2021-09-24 06:14] LABS: Basophils % 1.6 %; Immature Granulocytes % 0.8 % (0-4); Segmented Neutrophils % 43.2 %
[2021-09-24 06:15] LABS: Eosinophils % 1.6 %; Hematocrit 33.9 % (35.3-44.9); Hemoglobin 10.9 g/dL (11.5-15.4); Lymphocytes # 0.3 K/mcL (0.6-4.6); Mean Corpuscular HGB Conc 32.2 g/dL (31.6-35.5); Mean Corpuscular Hemoglobin 27.7 pg (28.0-33.3); Mean Corpuscular Volume 86.3 fL (83.0-100.0); Mean Platelet Volume 9.9 fL (9.4-12.4); Monocytes % 26.8 %; Neutrophils # 0.6 K/mcL (1.6-8.9); Platelet Count 109 K/mcL (140-400); Red Blood Count 3.93 M/mcL (3.82-4.97); Red Cell Distribution Width 19.6 % (11.5-14.5); White Blood Count 1.3 K/mcL (4.3-11.1)
[2021-09-24 06:21] LABS: Monocytes # 0.4 K/mcL (0.0-1.3)
[2021-09-24 06:31] LABS: BUN/Creatinine Ratio 16 (6-26); Blood Urea Nitrogen 5 mg/dL (8-23); Calcium 8.4 mg/dL (8.6-10.3); Carbon Dioxide 28 mEq/L (23-29); Chloride 108 mEq/L (98-107); Glucose 146 mg/dL (70-105); Magnesium 1.8 mg/dL (1.6-2.6); Osmolality,Calculated 290 (280-300); Phosphorous 2.7 mg/dL (2.7-4.5); Potassium 3.8 mEq/L (3.5-5.1); Sodium 140 mEq/L (136-145); eGFR For African Americans > 60 (> 60); eGFR For Non-African Americans > 60 (> 60)
[2021-09-24] MEDS: Insulin LISPRO 300 UNITS/3 ML VIAL SUBQ SCH ×3 (06:37→18:07)
[2021-09-24 06:51] LABS: Platelet Estimate Slight Decrease (Normal); Reactive Lymphocytes Present (Not Present)
[2021-09-24] MEDS: Aspirin 81 MG TAB.CHEW GTUBE SCH (09:03)
[2021-09-24] MEDS: Gabapentin 300 MG CAPSULE GTUBE SCH ×2 (09:04→20:19)
[2021-09-24] MEDS: Loratadine 10 MG TABLET GTUBE SCH (09:04)
[2021-09-25] MEDS: Insulin LISPRO 300 UNITS/3 ML VIAL SUBQ SCH ×4 (01:42→19:00)
[2021-09-25] MEDS: Pantoprazole 40 MG VIAL IVP SCH ×2 (05:15→19:00)
[2021-09-25 06:14] LABS: Basophils % 1.4 %; Eosinophils % 1.4 %; Immature Granulocytes % 0.7 % (0-4); Segmented Neutrophils % 44.7 %
[2021-09-25 06:16] LABS: Hematocrit 33.7 % (35.3-44.9); Hemoglobin 11.1 g/dL (11.5-15.4); Lymphocytes # 0.4 K/mcL (0.6-4.6); Mean Corpuscular HGB Conc 32.9 g/dL (31.6-35.5); Mean Corpuscular Hemoglobin 28.8 pg (28.0-33.3); Mean Corpuscular Volume 87.5 fL (83.0-100.0); Mean Platelet Volume 9.7 fL (9.4-12.4); Monocytes # 0.3 K/mcL (0.0-1.3); Monocytes % 23.8 %; Neutrophils # 0.6 K/mcL (1.6-8.9); Platelet Count 110 K/mcL (140-400); Red Blood Count 3.85 M/mcL (3.82-4.97); Red Cell Distribution Width 20.2 % (11.5-14.5); White Blood Count 1.4 K/mcL (4.3-11.1)
[2021-09-25 06:31] LABS: BUN/Creatinine Ratio 27 (6-26); Blood Urea Nitrogen 9 mg/dL (8-23); Calcium 8.5 mg/dL (8.6-10.3); Carbon Dioxide 29 mEq/L (23-29); Chloride 107 mEq/L (98-107); Glucose 154 mg/dL (70-105); Magnesium 1.9 mg/dL (1.6-2.6); Osmolality,Calculated 292 (280-300); Phosphorous 3.7 mg/dL (2.7-4.5); Potassium 3.9 mEq/L (3.5-5.1); Sodium 140 mEq/L (136-145); eGFR For African Americans > 60 (> 60); eGFR For Non-African Americans > 60 (> 60)
[2021-09-25 06:38] LABS: Platelet Estimate Normal (Normal)
[2021-09-25] MEDS: Aspirin 81 MG TAB.CHEW GTUBE SCH (10:27)
[2021-09-25] MEDS: Gabapentin 300 MG CAPSULE GTUBE SCH ×2 (10:27→21:10)
[2021-09-25] MEDS: Loratadine 10 MG TABLET GTUBE SCH (10:27)
[2021-09-26] MEDS: Insulin LISPRO 300 UNITS/3 ML VIAL SUBQ SCH ×4 (00:38→18:07)
[2021-09-26] MEDS: Pantoprazole 40 MG VIAL IVP SCH ×2 (05:48→17:15)
[2021-09-26 06:19] LABS: Hemoglobin 11.1 g/dL (11.5-15.4); Mean Platelet Volume 9.6 fL (9.4-12.4)
[2021-09-26 06:20] LABS: Basophils % 1.6 %; Eosinophils % 1.1 %; Hematocrit 34.9 % (35.3-44.9); Immature Granulocytes % 0.5 % (0-4); Lymphocytes % 24.6 %; Mean Corpuscular HGB Conc 31.8 g/dL (31.6-35.5); Mean Corpuscular Volume 87.9 fL (83.0-100.0); Monocytes # 0.4 K/mcL (0.0-1.3); Monocytes % 20.2 %; Platelet Count 103 K/mcL (140-400); Red Blood Count 3.97 M/mcL (3.82-4.97); Red Cell Distribution Width 20.5 % (11.5-14.5); White Blood Count 1.8 K/mcL (4.3-11.1)
[2021-09-26 06:21] LABS: Lymphocytes # 0.4 K/mcL (0.6-4.6); Neutrophils # 0.9 K/mcL (1.6-8.9)
[2021-09-26 06:37] LABS: BUN/Creatinine Ratio 32 (6-26); Blood Urea Nitrogen 10 mg/dL (8-23); Calcium 8.5 mg/dL (8.6-10.3); Carbon Dioxide 30 mEq/L (23-29); Chloride 106 mEq/L (98-107); Glucose 189 mg/dL (70-105); Magnesium 1.9 mg/dL (1.6-2.6); Osmolality,Calculated 296 (280-300); Sodium 141 mEq/L (136-145); eGFR For African Americans > 60 (> 60); eGFR For Non-African Americans > 60 (> 60)
[2021-09-26] MEDS: Loratadine 10 MG TABLET GTUBE SCH (08:12)
[2021-09-26] MEDS: Aspirin 81 MG TAB.CHEW GTUBE SCH (08:12)
[2021-09-26] MEDS: Gabapentin 300 MG CAPSULE GTUBE SCH ×2 (08:12→21:37)
[2021-09-27] MEDS: Insulin LISPRO 300 UNITS/3 ML VIAL SUBQ SCH ×4 (00:45→12:23)
[2021-09-27] MEDS: Pantoprazole 40 MG VIAL IVP SCH (05:36)
[2021-09-27 06:24] LABS: Basophils % 1.7 %; Hemoglobin 11.2 g/dL (11.5-15.4); Immature Granulocytes % 0.6 % (0-4)
[2021-09-27 06:26] LABS: Eosinophils % 1.7 %; Hematocrit 35.3 % (35.3-44.9); Lymphocytes # 0.4 K/mcL (0.6-4.6); Lymphocytes % 23.2 %; Mean Corpuscular HGB Conc 31.7 g/dL (31.6-35.5); Mean Corpuscular Hemoglobin 28.2 pg (28.0-33.3); Mean Corpuscular Volume 88.9 fL (83.0-100.0); Mean Platelet Volume 10.2 fL (9.4-12.4); Monocytes # 0.4 K/mcL (0.0-1.3); Monocytes % 21.5 %; Neutrophils # 0.9 K/mcL (1.6-8.9); Platelet Count 105 K/mcL (140-400); Red Blood Count 3.97 M/mcL (3.82-4.97); Red Cell Distribution Width 20.8 % (11.5-14.5); Segmented Neutrophils % 51.3 %; White Blood Count 1.8 K/mcL (4.3-11.1)
[2021-09-27 06:58] LABS: BUN/Creatinine Ratio 31 (6-26); Blood Urea Nitrogen 11 mg/dL (8-23); Calcium 8.4 mg/dL (8.6-10.3); Carbon Dioxide 29 mEq/L (23-29); Chloride 106 mEq/L (98-107); Glucose 185 mg/dL (70-105); Magnesium 1.9 mg/dL (1.6-2.6); Osmolality,Calculated 292 (280-300); Potassium 3.9 mEq/L (3.5-5.1); Sodium 139 mEq/L (136-145); eGFR For African Americans > 60 (> 60); eGFR For Non-African Americans > 60 (> 60)
[2021-09-27] MEDS: Aspirin 81 MG TAB.CHEW GTUBE SCH (08:20)
[2021-09-27] MEDS: Loratadine 10 MG TABLET GTUBE SCH (08:20)
[2021-09-27] MEDS: Gabapentin 300 MG CAPSULE GTUBE SCH (08:20)
[2021-09-27 12:02] VITALS: BP 130/78; PULSE 108; TEMP 97.7; O2SAT 96
== END 2021-09-27 13:20 | disposition home health service (06) | DRG 391 ==
LOC: 3ANU 12:28 → EMEROOARM 12:28 → SUATTDRO 15:20 → 3ANU 17:01
PROVIDERS: ADMIT Student in an Organized Health Care Education/Training Program; ATTEND Pharmacist

== ENCOUNTER 2021-12-12 14:59 | Inpatient (IN) ==
[2021-12-12] MEDS ORDERED: Naloxone 0.4 MG/ML INJ IVP PRN (18:14)
[2021-12-12] MEDS ORDERED: D5% in Water 1,000 ML IVC PRN (18:18)
[2021-12-12] MEDS ORDERED: *HR* Dextrose 50 % in Water (Syg) 50 ML SYRINGE IVP PRN (18:18)
[2021-12-12] MEDS ORDERED: Dextrose Gel 15 GM/37.5 ML TUBE PO PRN ×2 (18:18)
[2021-12-12] MEDS: Insulin LISPRO 300 UNITS/3 ML VIAL SUBQ SCH (20:45)
[2021-12-12 21:01] LABS: Basophils % 0.4 %; Eosinophils # 0.2 K/mcL (0.0-0.6); Eosinophils % 3.4 %; Hematocrit 37.3 % (35.3-44.9); Hemoglobin 12.6 g/dL (11.5-15.4); Immature Granulocytes % 0.2 % (0-4); Lymphocytes # 0.4 K/mcL (0.6-4.6); Lymphocytes % 8.3 %; Mean Corpuscular HGB Conc 33.8 g/dL (31.6-35.5); Mean Corpuscular Hemoglobin 30.5 pg (28.0-33.3); Mean Corpuscular Volume 90.3 fL (83.0-100.0); Mean Platelet Volume 9.1 fL (9.4-12.4); Monocytes # 0.4 K/mcL (0.0-1.3); Monocytes % 8.5 %; Neutrophils # 3.7 K/mcL (1.6-8.9); Platelet Count 139 K/mcL (140-400); Red Blood Count 4.13 M/mcL (3.82-4.97); Red Cell Distribution Width 13.2 % (11.5-14.5); Segmented Neutrophils % 79.2 %; White Blood Count 4.7 K/mcL (4.3-11.1)
[2021-12-12 21:25] LABS: BUN/Creatinine Ratio 13 (6-26); Blood Urea Nitrogen 6 mg/dL (8-23); Calcium 8.5 mg/dL (8.6-10.3); Carbon Dioxide 25 mEq/L (23-29); Chloride 103 mEq/L (98-107); Glucose 157 mg/dL (70-105); Magnesium 1.8 mg/dL (1.6-2.6); Osmolality,Calculated 279 (280-300); Phosphorous 3.1 mg/dL (2.7-4.5); Potassium 3.6 mEq/L (3.5-5.1); Sodium 134 mEq/L (136-145); eGFR For African Americans > 60 (> 60); eGFR For Non-African Americans > 60 (> 60)
[2021-12-13 05:43] LABS: Basophils % 0.7 %; Eosinophils # 0.2 K/mcL (0.0-0.6); Eosinophils % 5.6 %; Hematocrit 37.4 % (35.3-44.9); Hemoglobin 12.4 g/dL (11.5-15.4); Immature Granulocytes % 0.5 % (0-4); Lymphocytes # 0.4 K/mcL (0.6-4.6); Lymphocytes % 9.6 %; Mean Corpuscular HGB Conc 33.2 g/dL (31.6-35.5); Mean Corpuscular Hemoglobin 29.9 pg (28.0-33.3); Mean Corpuscular Volume 90.1 fL (83.0-100.0); Mean Platelet Volume 9.5 fL (9.4-12.4); Monocytes # 0.4 K/mcL (0.0-1.3); Monocytes % 9.8 %; Neutrophils # 3.2 K/mcL (1.6-8.9); Platelet Count 142 K/mcL (140-400); Red Blood Count 4.15 M/mcL (3.82-4.97); Segmented Neutrophils % 73.8 %; White Blood Count 4.3 K/mcL (4.3-11.1)
[2021-12-13 06:02] LABS: BUN/Creatinine Ratio 14 (6-26); Blood Urea Nitrogen 5 mg/dL (8-23); Calcium 8.4 mg/dL (8.6-10.3); Carbon Dioxide 24 mEq/L (23-29); Chloride 104 mEq/L (98-107); Glucose 106 mg/dL (70-105); Magnesium 1.9 mg/dL (1.6-2.6); Osmolality,Calculated 278 (280-300); Phosphorous 3.6 mg/dL (2.7-4.5); Potassium 3.6 mEq/L (3.5-5.1); Sodium 135 mEq/L (136-145); eGFR For African Americans > 60 (> 60); eGFR For Non-African Americans > 60 (> 60)
[2021-12-13] MEDS: *HR* Heparin 5,000 UNIT/ML VIAL SQ SCH ×2 (06:57→17:02)
[2021-12-13] MEDS: Cefepime HCl 1,000 MG in 0.9 % Sodium Chloride Mini Bag 100 ML IVPB SCH ×2 (06:57→17:02)
[2021-12-13] MEDS: Vancomycin 1,250 MG/262.5 ML IV.SOLN IVPB SCH ×2 (06:58→17:48)
[2021-12-13] MEDS: Insulin LISPRO 300 UNITS/3 ML VIAL SUBQ SCH ×4 (09:27→20:29)
[2021-12-13] MEDS: Acetaminophen 325 MG TABLET PO PRN (18:09)
[2021-12-13] MEDS: Gabapentin 300 MG CAPSULE PO SCH (20:28)
[2021-12-13] MEDS: Budesonide/Formoterol 80/4.5 1 PUFF INH IH SCH (20:53)
[2021-12-14 02:12] LABS: Basophils % 0.4 %; Eosinophils # 0.2 K/mcL (0.0-0.6); Hematocrit 34.7 % (35.3-44.9); Hemoglobin 11.9 g/dL (11.5-15.4); Immature Granulocytes % 0.4 % (0-4); Lymphocytes # 0.3 K/mcL (0.6-4.6); Lymphocytes % 11.2 %; Mean Corpuscular HGB Conc 34.3 g/dL (31.6-35.5); Mean Corpuscular Hemoglobin 31.1 pg (28.0-33.3); Mean Corpuscular Volume 90.6 fL (83.0-100.0); Mean Platelet Volume 9.7 fL (9.4-12.4); Monocytes # 0.3 K/mcL (0.0-1.3); Monocytes % 10.8 %; Neutrophils # 1.9 K/mcL (1.6-8.9); Platelet Count 124 K/mcL (140-400); Red Blood Count 3.83 M/mcL (3.82-4.97); Segmented Neutrophils % 71.2 %; White Blood Count 2.7 K/mcL (4.3-11.1)
[2021-12-14 02:23] LABS: BUN/Creatinine Ratio 14 (6-26); Blood Urea Nitrogen 5 mg/dL (8-23); Calcium 8.1 mg/dL (8.6-10.3); Carbon Dioxide 24 mEq/L (23-29); Chloride 107 mEq/L (98-107); Glucose 98 mg/dL (70-105); Osmolality,Calculated 283 (280-300); Potassium 3.5 mEq/L (3.5-5.1); Sodium 138 mEq/L (136-145); eGFR For African Americans > 60 (> 60); eGFR For Non-African Americans > 60 (> 60)
[2021-12-14] MEDS: *HR* Heparin 5,000 UNIT/ML VIAL SQ SCH ×2 (04:34→17:00)
[2021-12-14] MEDS: Cefepime HCl 1,000 MG in 0.9 % Sodium Chloride Mini Bag 100 ML IVPB SCH ×2 (05:03→17:31)
[2021-12-14] MEDS: Ondansetron 4 MG/2 ML VIAL IVP PRN (05:06)
[2021-12-14] MEDS: Vancomycin 1,250 MG/262.5 ML IV.SOLN IVPB SCH (05:50)
[2021-12-14] MEDS: Budesonide/Formoterol 80/4.5 1 PUFF INH IH SCH ×2 (07:32→20:20)
[2021-12-14] MEDS: Insulin LISPRO 300 UNITS/3 ML VIAL SUBQ SCH ×4 (07:44→20:33)
[2021-12-14] MEDS: Gabapentin 300 MG CAPSULE PO SCH ×2 (08:00→20:32)
[2021-12-14] MEDS: Aspirin 81 MG TAB.CHEW PO SCH (08:00)
[2021-12-14] MEDS: Acetaminophen 325 MG TABLET PO PRN (08:00)
[2021-12-15 02:57] LABS: Eosinophils # 0.2 K/mcL (0.0-0.6); Eosinophils % 7.2 %; Hematocrit 34.2 % (35.3-44.9); Hemoglobin 11.5 g/dL (11.5-15.4); Lymphocytes # 0.3 K/mcL (0.6-4.6); Lymphocytes % 11.7 %; Mean Corpuscular HGB Conc 33.6 g/dL (31.6-35.5); Mean Corpuscular Hemoglobin 30.3 pg (28.0-33.3); Mean Platelet Volume 9.4 fL (9.4-12.4); Monocytes # 0.2 K/mcL (0.0-1.3); Monocytes % 10.8 %; Neutrophils # 1.6 K/mcL (1.6-8.9); Platelet Count 102 K/mcL (140-400); Red Cell Distribution Width 12.9 % (11.5-14.5); Segmented Neutrophils % 70.3 %; White Blood Count 2.2 K/mcL (4.3-11.1)
[2021-12-15 03:14] LABS: BUN/Creatinine Ratio 11 (6-26); Blood Urea Nitrogen 4 mg/dL (8-23); Calcium 8.3 mg/dL (8.6-10.3); Carbon Dioxide 26 mEq/L (23-29); Chloride 107 mEq/L (98-107); Glucose 107 mg/dL (70-105); Osmolality,Calculated 283 (280-300); Potassium 3.4 mEq/L (3.5-5.1); Sodium 138 mEq/L (136-145); eGFR For African Americans > 60 (> 60); eGFR For Non-African Americans > 60 (> 60)
[2021-12-15] MEDS: Cefepime HCl 1,000 MG in 0.9 % Sodium Chloride Mini Bag 100 ML IVPB SCH ×2 (05:09→17:35)
[2021-12-15] MEDS: *HR* Heparin 5,000 UNIT/ML VIAL SQ SCH ×2 (05:10→17:35)
[2021-12-15] MEDS: Budesonide/Formoterol 80/4.5 1 PUFF INH IH SCH ×2 (08:06→20:03)
[2021-12-15] MEDS: Insulin LISPRO 300 UNITS/3 ML VIAL SUBQ SCH ×4 (08:34→19:37)
[2021-12-15] MEDS: Gabapentin 300 MG CAPSULE PO SCH ×2 (08:39→19:37)
[2021-12-15] MEDS: Aspirin 81 MG TAB.CHEW PO SCH (08:39)
[2021-12-15] MEDS: Acetaminophen 325 MG TABLET PO PRN ×2 (08:39→19:36)
[2021-12-15] MEDS: Ondansetron 4 MG/2 ML VIAL IVP PRN (19:31)
[2021-12-16 02:28] LABS: Basophils % 0.4 %; Eosinophils # 0.2 K/mcL (0.0-0.6); Eosinophils % 8.9 %; Hematocrit 34.1 % (35.3-44.9); Hemoglobin 11.2 g/dL (11.5-15.4); Lymphocytes # 0.2 K/mcL (0.6-4.6); Lymphocytes % 8.9 %; Mean Corpuscular HGB Conc 32.8 g/dL (31.6-35.5); Mean Corpuscular Hemoglobin 30.2 pg (28.0-33.3); Mean Corpuscular Volume 91.9 fL (83.0-100.0); Mean Platelet Volume 9.6 fL (9.4-12.4); Monocytes # 0.2 K/mcL (0.0-1.3); Monocytes % 10.7 %; Neutrophils # 1.6 K/mcL (1.6-8.9); Platelet Count 104 K/mcL (140-400); Red Blood Count 3.71 M/mcL (3.82-4.97); Red Cell Distribution Width 12.9 % (11.5-14.5); Segmented Neutrophils % 71.1 %; White Blood Count 2.2 K/mcL (4.3-11.1)
[2021-12-16 02:54] LABS: BUN/Creatinine Ratio 14 (6-26); Blood Urea Nitrogen 4 mg/dL (8-23); Calcium 8.3 mg/dL (8.6-10.3); Carbon Dioxide 25 mEq/L (23-29); Chloride 107 mEq/L (98-107); Glucose 117 mg/dL (70-105); Osmolality,Calculated 286 (280-300); Potassium 3.5 mEq/L (3.5-5.1); Sodium 139 mEq/L (136-145); eGFR For African Americans > 60 (> 60); eGFR For Non-African Americans > 60 (> 60)
[2021-12-16] MEDS: Cefepime HCl 1,000 MG in 0.9 % Sodium Chloride Mini Bag 100 ML IVPB SCH ×2 (05:30→16:47)
[2021-12-16] MEDS: *HR* Heparin 5,000 UNIT/ML VIAL SQ SCH ×2 (05:33→16:36)
[2021-12-16] MEDS: Insulin LISPRO 300 UNITS/3 ML VIAL SUBQ SCH ×4 (08:21→21:01)
[2021-12-16] MEDS: Gabapentin 300 MG CAPSULE PO SCH ×2 (08:22→21:01)
[2021-12-16] MEDS: Aspirin 81 MG TAB.CHEW PO SCH (08:22)
[2021-12-16] MEDS: Budesonide/Formoterol 80/4.5 1 PUFF INH IH SCH ×2 (08:29→19:37)
[2021-12-16] MEDS: Benzonatate 100 MG CAPSULE PO PRN ×2 (08:32→21:00)
[2021-12-16] MEDS ORDERED: Isovue-370 500 ML BOTTLE IVP ONE (08:45)
[2021-12-16 12:07] LABS: Adenovirus Not Detected (Not Detect); Bordetella Pertussis Not Detected (Not Detect); Chlamydophila pneumoniae Not Detected (Not Detect); Coronavirus 229E Not Detected (Not Detect); Coronavirus HKU1 Not Detected (Not Detect); Coronavirus NL63 Not Detected (Not Detect); Coronavirus OC43 Not Detected (Not Detect); Human Metapneumovirus Not Detected (Not Detect); Human Rhinovirus/Enterovirus Not Detected (Not Detect); Influenza A Subtype 2009 H1 Not Detected (Not Detect); Influenza B Not Detected (Not Detect); Mycoplasma pneumoniae Not Detected (Not Detect); Parainfluenza Virus 1 Not Detected (Not Detect); Parainfluenza Virus 2 Not Detected (Not Detect); Parainfluenza Virus 3 Not Detected (Not Detect); Parainfluenza Virus 4 Not Detected (Not Detect); Respiratory Syncytial Virus Not Detected (Not Detect); SARS-CoV-2 Not Detected (Not Detect)
[2021-12-16] MEDS ORDERED: Furosemide 20 MG/2 ML VIAL IVP ONE (14:59)
[2021-12-16] MEDS: Acetaminophen 325 MG TABLET PO PRN (21:00)
[2021-12-16] MEDS ORDERED: Ondansetron ODT 4 MG TAB.RAPDIS SL ONE (23:14)
[2021-12-17] MEDS: Cefepime HCl 1,000 MG in 0.9 % Sodium Chloride Mini Bag 100 ML IVPB SCH ×2 (05:33→17:49)
[2021-12-17] MEDS: *HR* Heparin 5,000 UNIT/ML VIAL SQ SCH ×3 (05:35→20:06)
[2021-12-17 07:31] LABS: Hemoglobin 11.7 g/dL (11.5-15.4)
[2021-12-17 07:33] LABS: Eosinophils # 0.2 K/mcL (0.0-0.6); Hematocrit 34.3 % (35.3-44.9); Mean Corpuscular HGB Conc 34.1 g/dL (31.6-35.5); Mean Corpuscular Hemoglobin 31.2 pg (28.0-33.3); Mean Corpuscular Volume 91.5 fL (83.0-100.0); Mean Platelet Volume 9.8 fL (9.4-12.4); Neutrophils # 1.3 K/mcL (1.6-8.9); Platelet Count 104 K/mcL (140-400); Red Blood Count 3.75 M/mcL (3.82-4.97); Red Cell Distribution Width 12.9 % (11.5-14.5); White Blood Count 1.9 K/mcL (4.3-11.1)
[2021-12-17 07:49] LABS: BUN/Creatinine Ratio 14 (6-26); Blood Urea Nitrogen 5 mg/dL (8-23); Calcium 8.7 mg/dL (8.6-10.3); Carbon Dioxide 27 mEq/L (23-29); Chloride 104 mEq/L (98-107); Glucose 115 mg/dL (70-105); Osmolality,Calculated 282 (280-300); Potassium 3.5 mEq/L (3.5-5.1); Sodium 137 mEq/L (136-145); eGFR For African Americans > 60 (> 60); eGFR For Non-African Americans > 60 (> 60)
[2021-12-17] MEDS: Insulin LISPRO 300 UNITS/3 ML VIAL SUBQ SCH ×4 (07:54→20:06)
[2021-12-17] MEDS: Budesonide/Formoterol 80/4.5 1 PUFF INH IH SCH ×2 (08:09→20:19)
[2021-12-17 08:29] LABS: Lymphocytes # 0.4 K/mcL (0.6-4.6); Monocytes # 0.1 K/mcL (0.0-1.3); Platelet Estimate Decreased (Normal)
[2021-12-17] MEDS: Acetaminophen 325 MG TABLET PO PRN ×2 (08:38→18:43)
[2021-12-17] MEDS: Aspirin 81 MG TAB.CHEW PO SCH (08:39)
[2021-12-17] MEDS: Gabapentin 300 MG CAPSULE PO SCH ×2 (08:39→20:06)
[2021-12-17] MEDS: Lactobacillus 1 EACH CAP.SPRINK PO SCH (08:40)
[2021-12-17] MEDS: Ondansetron 4 MG/2 ML VIAL IVP PRN ×2 (11:11→21:47)
[2021-12-17] MEDS: *HR* OxyCODONE Immed Rel 5 MG TABLET PO PRN ×2 (13:10→18:42)
[2021-12-17] MEDS: predniSONE 20 MG TABLET PO SCH (15:47)
[2021-12-17] MEDS ORDERED: Ketorolac 30 MG/ML VIAL IVP ONE (18:41)
[2021-12-18 02:33] LABS: Eosinophils % 0.4 %; Hematocrit 35.6 % (35.3-44.9); Immature Granulocytes % 0.4 % (0-4); Lymphocytes # 0.2 K/mcL (0.6-4.6); Lymphocytes % 8.1 %; Mean Corpuscular HGB Conc 33.7 g/dL (31.6-35.5); Mean Corpuscular Hemoglobin 30.5 pg (28.0-33.3); Mean Corpuscular Volume 90.4 fL (83.0-100.0); Mean Platelet Volume 9.7 fL (9.4-12.4); Monocytes # 0.2 K/mcL (0.0-1.3); Monocytes % 5.8 %; Neutrophils # 2.2 K/mcL (1.6-8.9); Platelet Count 131 K/mcL (140-400); Red Blood Count 3.94 M/mcL (3.82-4.97); Red Cell Distribution Width 12.6 % (11.5-14.5); Segmented Neutrophils % 85.3 %; White Blood Count 2.6 K/mcL (4.3-11.1)
[2021-12-18 02:51] LABS: BUN/Creatinine Ratio 18 (6-26); Blood Urea Nitrogen 7 mg/dL (8-23); Carbon Dioxide 29 mEq/L (23-29); Chloride 103 mEq/L (98-107); Glucose 184 mg/dL (70-105); Osmolality,Calculated 287 (280-300); Potassium 4.3 mEq/L (3.5-5.1); Sodium 137 mEq/L (136-145); eGFR For African Americans > 60 (> 60); eGFR For Non-African Americans > 60 (> 60)
[2021-12-18] MEDS: Cefepime HCl 1,000 MG in 0.9 % Sodium Chloride Mini Bag 100 ML IVPB SCH ×2 (05:03→17:36)
[2021-12-18] MEDS: *HR* Heparin 5,000 UNIT/ML VIAL SQ SCH ×2 (05:04→17:16)
[2021-12-18] MEDS: Insulin LISPRO 300 UNITS/3 ML VIAL SUBQ SCH ×4 (09:58→20:16)
[2021-12-18] MEDS: Ondansetron 4 MG/2 ML VIAL IVP PRN ×2 (10:00→17:40)
[2021-12-18] MEDS: predniSONE 20 MG TABLET PO SCH (10:01)
[2021-12-18] MEDS: Benzonatate 100 MG CAPSULE PO PRN (10:01)
[2021-12-18] MEDS: Lactobacillus 1 EACH CAP.SPRINK PO SCH (10:01)
[2021-12-18] MEDS: Aspirin 81 MG TAB.CHEW PO SCH (10:01)
[2021-12-18] MEDS: Gabapentin 300 MG CAPSULE PO SCH ×2 (10:01→20:20)
[2021-12-18] MEDS: Budesonide/Formoterol 80/4.5 1 PUFF INH IH SCH ×2 (10:05→19:54)
[2021-12-18] MEDS: Albuterol 2.5 MG/3 ML NEBULIZER IH PRN (10:05)
[2021-12-18] MEDS: *HR* OxyCODONE Immed Rel 5 MG TABLET PO PRN (20:25)
[2021-12-19] MEDS: *HR* Heparin 5,000 UNIT/ML VIAL SQ SCH ×2 (04:58→16:22)
[2021-12-19] MEDS: Cefepime HCl 1,000 MG in 0.9 % Sodium Chloride Mini Bag 100 ML IVPB SCH (05:00)
[2021-12-19] MEDS: Insulin LISPRO 300 UNITS/3 ML VIAL SUBQ SCH ×4 (07:42→21:55)
[2021-12-19] MEDS: Budesonide/Formoterol 80/4.5 1 PUFF INH IH SCH ×2 (08:10→20:36)
[2021-12-19] MEDS: Lactobacillus 1 EACH CAP.SPRINK PO SCH (08:42)
[2021-12-19] MEDS: Gabapentin 300 MG CAPSULE PO SCH ×2 (08:42→22:08)
[2021-12-19] MEDS: predniSONE 20 MG TABLET PO SCH (08:42)
[2021-12-19] MEDS: Aspirin 81 MG TAB.CHEW PO SCH (08:42)
[2021-12-19] MEDS ORDERED: Azithromycin 250 MG TABLET PO SCH (09:45)
[2021-12-19 10:51] LABS: Alanine Aminotransferase 7 Units/L (7-52); Albumin 3.4 g/dL (3.5-5.7); Alkaline Phosphatase 69 Units/L (34-104); Aspartate Amino Transferase 18 Units/L (13-39); Bilirubin,Total 0.4 mg/dL (0.3-1.0); Blood Urea Nitrogen 9 mg/dL (8-23); Calcium 9.4 mg/dL (8.6-10.3); Carbon Dioxide 32 mEq/L (23-29); Chloride 103 mEq/L (98-107); Globulin 3.3 g/dL (2.4-3.5); Glucose 161 mg/dL (70-105); Osmolality,Calculated 288 (280-300); Potassium 3.6 mEq/L (3.5-5.1); Sodium 138 mEq/L (136-145); Total Protein 6.7 g/dL (6.4-8.9)
[2021-12-19 11:59] LABS: BUN/Creatinine Ratio 20 (6-26); eGFR For African Americans > 60 (> 60); eGFR For Non-African Americans > 60 (> 60)
[2021-12-19] MEDS ORDERED: Vancomycin 1,500 MG/265 ML IV.SOLN IVPB SCH (12:00)
[2021-12-19 13:19] LABS: Basophils % 0.2 %; Eosinophils # 0.1 K/mcL (0.0-0.6); Eosinophils % 2.1 %; Hematocrit 40.9 % (35.3-44.9); Hemoglobin 13.2 g/dL (11.5-15.4); Immature Granulocytes % 0.2 % (0-4); Lymphocytes # 0.2 K/mcL (0.6-4.6); Lymphocytes % 4.8 %; Mean Corpuscular HGB Conc 32.3 g/dL (31.6-35.5); Mean Corpuscular Hemoglobin 29.9 pg (28.0-33.3); Mean Corpuscular Volume 92.5 fL (83.0-100.0); Mean Platelet Volume 9.8 fL (9.4-12.4); Monocytes # 0.4 K/mcL (0.0-1.3); Monocytes % 8.3 %; Neutrophils # 4.1 K/mcL (1.6-8.9); Platelet Count 148 K/mcL (140-400); Red Blood Count 4.42 M/mcL (3.82-4.97); Segmented Neutrophils % 84.4 %; White Blood Count 4.8 K/mcL (4.3-11.1)
[2021-12-19] MEDS ORDERED: methylPREDNISolone 125 MG/2 ML VIAL IVP ONE (15:22)
[2021-12-19] MEDS: Ondansetron 4 MG/2 ML VIAL IVP PRN (22:02)
[2021-12-19] MEDS: *HR* OxyCODONE Immed Rel 5 MG TABLET PO PRN (22:08)
[2021-12-20] MEDS: *HR* Heparin 5,000 UNIT/ML VIAL SQ SCH ×2 (05:49→16:42)
[2021-12-20 06:48] LABS: Hematocrit 35.6 % (35.3-44.9); Immature Granulocytes % 0.5 % (0-4); Lymphocytes # 0.2 K/mcL (0.6-4.6); Lymphocytes % 5.6 %; Mean Corpuscular HGB Conc 33.7 g/dL (31.6-35.5); Mean Corpuscular Hemoglobin 30.8 pg (28.0-33.3); Mean Corpuscular Volume 91.5 fL (83.0-100.0); Mean Platelet Volume 9.7 fL (9.4-12.4); Monocytes # 0.3 K/mcL (0.0-1.3); Monocytes % 7.7 %; Neutrophils # 3.3 K/mcL (1.6-8.9); Platelet Count 149 K/mcL (140-400); Red Blood Count 3.89 M/mcL (3.82-4.97); Red Cell Distribution Width 12.7 % (11.5-14.5); Segmented Neutrophils % 86.2 %; White Blood Count 3.8 K/mcL (4.3-11.1)
[2021-12-20 07:04] LABS: Alanine Aminotransferase 10 Units/L (7-52); Albumin 3.1 g/dL (3.5-5.7); Alkaline Phosphatase 62 Units/L (34-104); Aspartate Amino Transferase 19 Units/L (13-39); BUN/Creatinine Ratio 27 (6-26); Bilirubin,Total 0.3 mg/dL (0.3-1.0); Blood Urea Nitrogen 10 mg/dL (8-23); Calcium 9.1 mg/dL (8.6-10.3); Carbon Dioxide 28 mEq/L (23-29); Chloride 104 mEq/L (98-107); Globulin 3.2 g/dL (2.4-3.5); Glucose 164 mg/dL (70-105); Osmolality,Calculated 293 (280-300); Potassium 4.4 mEq/L (3.5-5.1); Sodium 140 mEq/L (136-145); Total Protein 6.3 g/dL (6.4-8.9); eGFR For African Americans > 60 (> 60); eGFR For Non-African Americans > 60 (> 60)
[2021-12-20] MEDS: Budesonide/Formoterol 80/4.5 1 PUFF INH IH SCH ×2 (07:28→20:11)
[2021-12-20] MEDS: Insulin LISPRO 300 UNITS/3 ML VIAL SUBQ SCH ×4 (07:35→20:55)
[2021-12-20] MEDS: predniSONE 20 MG TABLET PO SCH (08:52)
[2021-12-20] MEDS: Lactobacillus 1 EACH CAP.SPRINK PO SCH (08:52)
[2021-12-20] MEDS: Gabapentin 300 MG CAPSULE PO SCH ×3 (08:52→21:04)
[2021-12-20] MEDS: Aspirin 81 MG TAB.CHEW PO SCH (08:52)
[2021-12-20 10:13] LABS: C-Reactive Protein 16 mg/L (Less than 10)
[2021-12-20] MEDS: Ondansetron 4 MG/2 ML VIAL IVP PRN ×2 (10:59→20:53)
[2021-12-20] MEDS: *HR* OxyCODONE Immed Rel 5 MG TABLET PO PRN (20:54)
[2021-12-21 03:33] LABS: Basophils % 0.2 %; Eosinophils % 0.2 %; Hematocrit 35.5 % (35.3-44.9); Hemoglobin 11.7 g/dL (11.5-15.4); Immature Granulocytes % 0.2 % (0-4); Lymphocytes # 0.3 K/mcL (0.6-4.6); Mean Corpuscular Hemoglobin 30.1 pg (28.0-33.3); Mean Corpuscular Volume 91.3 fL (83.0-100.0); Mean Platelet Volume 9.8 fL (9.4-12.4); Monocytes # 0.6 K/mcL (0.0-1.3); Monocytes % 13.7 %; Neutrophils # 3.1 K/mcL (1.6-8.9); Platelet Count 153 K/mcL (140-400); Red Blood Count 3.89 M/mcL (3.82-4.97); Red Cell Distribution Width 12.8 % (11.5-14.5); Segmented Neutrophils % 77.7 %
[2021-12-21 04:04] LABS: Alanine Aminotransferase 17 Units/L (7-52); Albumin 2.9 g/dL (3.5-5.7); Albumin/Globulin Ratio 0.9 (1.1-2.2); Alkaline Phosphatase 61 Units/L (34-104); Aspartate Amino Transferase 23 Units/L (13-39); BUN/Creatinine Ratio 29 (6-26); Bilirubin,Total 0.3 mg/dL (0.3-1.0); Blood Urea Nitrogen 11 mg/dL (8-23); Calcium 8.4 mg/dL (8.6-10.3); Carbon Dioxide 31 mEq/L (23-29); Chloride 102 mEq/L (98-107); Globulin 3.1 g/dL (2.4-3.5); Glucose 145 mg/dL (70-105); Osmolality,Calculated 290 (280-300); Potassium 3.8 mEq/L (3.5-5.1); Sodium 139 mEq/L (136-145); eGFR For African Americans > 60 (> 60); eGFR For Non-African Americans > 60 (> 60)
[2021-12-21] MEDS: *HR* Heparin 5,000 UNIT/ML VIAL SQ SCH ×2 (05:00→15:50)
[2021-12-21] MEDS: Insulin LISPRO 300 UNITS/3 ML VIAL SUBQ SCH ×4 (07:25→21:17)
[2021-12-21] MEDS: Lactobacillus 1 EACH CAP.SPRINK PO SCH (07:39)
[2021-12-21] MEDS: predniSONE 20 MG TABLET PO SCH (07:40)
[2021-12-21] MEDS: Aspirin 81 MG TAB.CHEW PO SCH (07:40)
[2021-12-21] MEDS: Gabapentin 300 MG CAPSULE PO SCH ×2 (07:42→21:17)
[2021-12-21] MEDS: Budesonide/Formoterol 80/4.5 1 PUFF INH IH SCH ×2 (07:58→20:44)
[2021-12-21] MEDS: Albuterol 2.5 MG/3 ML NEBULIZER IH PRN (08:03)
[2021-12-21] MEDS ORDERED: Preparation H Ointment 57 GM TUBE RC PRN (15:35)
[2021-12-21] MEDS: Pantoprazole 40 MG VIAL IVP SCH (16:35)
[2021-12-22 01:33] LABS: Basophils % 0.3 %; Eosinophils % 1.2 %; Hematocrit 35.9 % (35.3-44.9); Immature Granulocytes % 0.3 % (0-4); Lymphocytes # 0.3 K/mcL (0.6-4.6); Lymphocytes % 7.8 %; Mean Corpuscular HGB Conc 33.4 g/dL (31.6-35.5); Mean Corpuscular Hemoglobin 30.5 pg (28.0-33.3); Mean Corpuscular Volume 91.1 fL (83.0-100.0); Mean Platelet Volume 9.6 fL (9.4-12.4); Monocytes # 0.5 K/mcL (0.0-1.3); Monocytes % 13.3 %; Neutrophils # 2.7 K/mcL (1.6-8.9); Platelet Count 162 K/mcL (140-400); Red Blood Count 3.94 M/mcL (3.82-4.97); Red Cell Distribution Width 12.7 % (11.5-14.5); Segmented Neutrophils % 77.1 %; White Blood Count 3.5 K/mcL (4.3-11.1)
[2021-12-22 01:44] LABS: Alanine Aminotransferase 23 Units/L (7-52); Alkaline Phosphatase 63 Units/L (34-104); Aspartate Amino Transferase 26 Units/L (13-39); BUN/Creatinine Ratio 30 (6-26); Bilirubin,Total 0.3 mg/dL (0.3-1.0); Blood Urea Nitrogen 11 mg/dL (8-23); C-Reactive Protein < 5 mg/L (Less than 10); Calcium 8.5 mg/dL (8.6-10.3); Carbon Dioxide 29 mEq/L (23-29); Chloride 105 mEq/L (98-107); Glucose 127 mg/dL (70-105); Osmolality,Calculated 293 (280-300); Potassium 3.7 mEq/L (3.5-5.1); Sodium 141 mEq/L (136-145); eGFR For African Americans > 60 (> 60); eGFR For Non-African Americans > 60 (> 60)
[2021-12-22] MEDS: Pantoprazole 40 MG VIAL IVP SCH ×2 (04:28→16:31)
[2021-12-22] MEDS: *HR* Heparin 5,000 UNIT/ML VIAL SQ SCH ×2 (04:30→16:21)
[2021-12-22] MEDS: Insulin LISPRO 300 UNITS/3 ML VIAL SUBQ SCH ×4 (07:25→20:56)
[2021-12-22] MEDS: Budesonide/Formoterol 80/4.5 1 PUFF INH IH SCH ×2 (07:59→19:44)
[2021-12-22] MEDS: Aspirin 81 MG TAB.CHEW PO SCH (08:28)
[2021-12-22] MEDS: Lactobacillus 1 EACH CAP.SPRINK PO SCH (08:28)
[2021-12-22] MEDS: Gabapentin 300 MG CAPSULE PO SCH ×2 (08:28→20:55)
[2021-12-22] MEDS: predniSONE 20 MG TABLET PO SCH (08:28)
[2021-12-22] MEDS: polyethylene glycoL 3350 17 GM POWD.PACK PO PRN (09:30)
[2021-12-22 10:35] LABS: Estimated Average Glucose 137 mg/dl; Hemoglobin A1C 6.4 %
[2021-12-23] MEDS: Pantoprazole 40 MG VIAL IVP SCH ×2 (05:50→17:06)
[2021-12-23] MEDS: *HR* Heparin 5,000 UNIT/ML VIAL SQ SCH ×2 (05:50→17:06)
[2021-12-23] MEDS: Insulin LISPRO 300 UNITS/3 ML VIAL SUBQ SCH ×4 (07:56→21:29)
[2021-12-23] MEDS: predniSONE 20 MG TABLET PO SCH (09:50)
[2021-12-23] MEDS: Aspirin 81 MG TAB.CHEW PO SCH (09:50)
[2021-12-23] MEDS: Gabapentin 300 MG CAPSULE PO SCH ×2 (09:50→21:29)
[2021-12-23] MEDS: Lactobacillus 1 EACH CAP.SPRINK PO SCH (09:50)
[2021-12-23] MEDS: Budesonide/Formoterol 80/4.5 1 PUFF INH IH SCH ×2 (10:36→20:33)
[2021-12-24] MEDS: *HR* Heparin 5,000 UNIT/ML VIAL SQ SCH ×2 (04:58→19:22)
[2021-12-24] MEDS: Pantoprazole 40 MG VIAL IVP SCH ×2 (04:58→19:23)
[2021-12-24] MEDS: Budesonide/Formoterol 80/4.5 1 PUFF INH IH SCH ×2 (07:53→20:22)
[2021-12-24] MEDS: Insulin LISPRO 300 UNITS/3 ML VIAL SUBQ SCH ×4 (09:34→21:29)
[2021-12-24] MEDS: Gabapentin 300 MG CAPSULE PO SCH ×2 (09:34→21:27)
[2021-12-24] MEDS: Aspirin 81 MG TAB.CHEW PO SCH (09:34)
[2021-12-24] MEDS: Lactobacillus 1 EACH CAP.SPRINK PO SCH (09:34)
[2021-12-24] MEDS: predniSONE 20 MG TABLET PO SCH (09:35)
[2021-12-24] MEDS: *HR* OxyCODONE Immed Rel 5 MG TABLET PO PRN (21:27)
[2021-12-24] MEDS: Ondansetron 4 MG/2 ML VIAL IVP PRN (21:28)
[2021-12-25] MEDS: *HR* Heparin 5,000 UNIT/ML VIAL SQ SCH ×2 (06:21→16:55)
[2021-12-25] MEDS: Pantoprazole 40 MG VIAL IVP SCH ×2 (06:21→17:14)
[2021-12-25] MEDS: Budesonide/Formoterol 80/4.5 1 PUFF INH IH SCH ×2 (07:42→19:54)
[2021-12-25] MEDS: Insulin LISPRO 300 UNITS/3 ML VIAL SUBQ SCH ×4 (07:44→21:36)
[2021-12-25] MEDS: predniSONE 20 MG TABLET PO SCH (08:49)
[2021-12-25] MEDS: Lactobacillus 1 EACH CAP.SPRINK PO SCH (08:49)
[2021-12-25] MEDS: Sulfamethoxazole/Trimeth DS 1 EACH TABLET PO SCH (08:49)
[2021-12-25] MEDS: Gabapentin 300 MG CAPSULE PO SCH ×2 (08:49→21:34)
[2021-12-25] MEDS: Aspirin 81 MG TAB.CHEW PO SCH (08:50)
[2021-12-25] MEDS: Ondansetron 4 MG/2 ML VIAL IVP PRN (21:34)
[2021-12-25] MEDS: *HR* OxyCODONE Immed Rel 5 MG TABLET PO PRN (21:34)
[2021-12-26 05:29] LABS: Eosinophils # 0.1 K/mcL (0.0-0.6); Hematocrit 37.1 % (35.3-44.9); Hemoglobin 12.3 g/dL (11.5-15.4); Immature Granulocytes % 0.4 % (0-4); Lymphocytes # 0.3 K/mcL (0.6-4.6); Lymphocytes % 6.1 %; Mean Corpuscular HGB Conc 33.2 g/dL (31.6-35.5); Mean Corpuscular Hemoglobin 29.8 pg (28.0-33.3); Mean Corpuscular Volume 89.8 fL (83.0-100.0); Mean Platelet Volume 10.1 fL (9.4-12.4); Monocytes # 0.5 K/mcL (0.0-1.3); Monocytes % 9.7 %; Neutrophils # 4.4 K/mcL (1.6-8.9); Platelet Count 164 K/mcL (140-400); Red Blood Count 4.13 M/mcL (3.82-4.97); Red Cell Distribution Width 12.8 % (11.5-14.5); Segmented Neutrophils % 82.8 %; White Blood Count 5.3 K/mcL (4.3-11.1)
[2021-12-26 05:46] LABS: BUN/Creatinine Ratio 23 (6-26); Blood Urea Nitrogen 11 mg/dL (8-23); Calcium 8.9 mg/dL (8.6-10.3); Carbon Dioxide 31 mEq/L (23-29); Chloride 103 mEq/L (98-107); Glucose 120 mg/dL (70-105); Osmolality,Calculated 289 (280-300); Sodium 139 mEq/L (136-145); eGFR For African Americans > 60 (> 60); eGFR For Non-African Americans > 60 (> 60)
[2021-12-26] MEDS: Pantoprazole 40 MG VIAL IVP SCH (06:29)
[2021-12-26] MEDS: *HR* Heparin 5,000 UNIT/ML VIAL SQ SCH ×2 (06:29→17:01)
[2021-12-26] MEDS: Insulin LISPRO 300 UNITS/3 ML VIAL SUBQ SCH ×4 (07:49→21:31)
[2021-12-26] MEDS: Gabapentin 300 MG CAPSULE PO SCH ×2 (08:36→21:28)
[2021-12-26] MEDS: Lactobacillus 1 EACH CAP.SPRINK PO SCH (08:36)
[2021-12-26] MEDS: Aspirin 81 MG TAB.CHEW PO SCH (08:36)
[2021-12-26] MEDS: Sulfamethoxazole/Trimeth DS 1 EACH TABLET PO SCH (08:36)
[2021-12-26] MEDS: predniSONE 20 MG TABLET PO SCH (08:36)
[2021-12-26] MEDS: Budesonide/Formoterol 80/4.5 1 PUFF INH IH SCH ×2 (10:26→20:20)
[2021-12-26] MEDS: Ondansetron 4 MG/2 ML VIAL IVP PRN ×2 (10:32→21:29)
[2021-12-26] MEDS: *HR* OxyCODONE Immed Rel 5 MG TABLET PO PRN ×2 (10:32→21:29)
[2021-12-26] MEDS ORDERED: Saline Nasal Spray 44 ML BOTTLE NS PRN (11:57)
[2021-12-27] MEDS: *HR* Heparin 5,000 UNIT/ML VIAL SQ SCH ×2 (06:31→16:24)
[2021-12-27] MEDS: Budesonide/Formoterol 80/4.5 1 PUFF INH IH SCH ×2 (07:56→20:07)
[2021-12-27] MEDS: predniSONE 20 MG TABLET PO SCH (08:44)
[2021-12-27] MEDS: Sulfamethoxazole/Trimeth DS 1 EACH TABLET PO SCH (08:44)
[2021-12-27] MEDS: Gabapentin 300 MG CAPSULE PO SCH ×2 (08:44→20:25)
[2021-12-27] MEDS: Aspirin 81 MG TAB.CHEW PO SCH (08:44)
[2021-12-27] MEDS: Insulin LISPRO 300 UNITS/3 ML VIAL SUBQ SCH ×4 (08:44→20:25)
[2021-12-27] MEDS: Lactobacillus 1 EACH CAP.SPRINK PO SCH (08:44)
[2021-12-27 19:08] LABS: Influenza A PCR Negative (Negative); Influenza B PCR Negative (Negative); Resp. Syncytial Virus PCR Negative (Negative)
[2021-12-27 19:45] LABS: SARS-CoV-2 by PCR (In House) Negative (Negative)
[2021-12-27] MEDS: polyethylene glycoL 3350 17 GM POWD.PACK PO PRN (20:25)
[2021-12-28] MEDS: *HR* Heparin 5,000 UNIT/ML VIAL SQ SCH (05:13)
[2021-12-28 07:07] VITALS: BP 113/72; PULSE 69; TEMP 97.9
[2021-12-28] MEDS: Insulin LISPRO 300 UNITS/3 ML VIAL SUBQ SCH ×2 (07:13→12:09)
[2021-12-28] MEDS: Budesonide/Formoterol 80/4.5 1 PUFF INH IH SCH (08:03)
[2021-12-28 08:04] VITALS: O2SAT 98
[2021-12-28] MEDS: Sulfamethoxazole/Trimeth DS 1 EACH TABLET PO SCH (08:30)
[2021-12-28] MEDS: Lactobacillus 1 EACH CAP.SPRINK PO SCH (08:30)
[2021-12-28] MEDS: Gabapentin 300 MG CAPSULE PO SCH (08:30)
[2021-12-28] MEDS: predniSONE 20 MG TABLET PO SCH (08:30)
[2021-12-28] MEDS: Aspirin 81 MG TAB.CHEW PO SCH (08:30)
== END 2021-12-28 13:39 | disposition critical access hospital (66) | DRG 205 ==
LOC: 3BNU → SUATTDRO 12-13 17:25
PROVIDERS: ADMIT Student in an Organized Health Care Education/Training Program; ATTEND Internal Medicine

== ENCOUNTER 2022-01-10 17:45 | Inpatient (IN) ==
[2022-01-11] MEDS ORDERED: Acetaminophen 325 MG TABLET PO PRN (00:40)
[2022-01-11] MEDS ORDERED: Naloxone 0.4 MG/ML INJ IVP PRN (00:47)
[2022-01-11] MEDS ORDERED: Ondansetron ODT 4 MG TAB.RAPDIS SL PRN (00:47)
[2022-01-11] MEDS ORDERED: Azithromycin 500 MG in 0.9 % Sodium Chloride 250 ML IVPB SCH (02:00)
[2022-01-11] MEDS ORDERED: Dextrose 4 GM Chewable Tablets PO PRN ×2 (02:11)
[2022-01-11] MEDS ORDERED: *HR* Dextrose 50 % in Water (Syg) 50 ML SYRINGE IVP PRN (02:11)
[2022-01-11] MEDS ORDERED: D5% in Water 1,000 ML IVC PRN (02:11)
[2022-01-11] MEDS ORDERED: predniSONE 20 MG TABLET PO ONE (02:59)
[2022-01-11] MEDS ORDERED: *HR* Heparin 5,000 UNIT/ML VIAL SQ SCH (06:00)
[2022-01-11] MEDS: Insulin LISPRO 300 UNITS/3 ML VIAL SUBQ SCH ×3 (06:59→17:12)
[2022-01-11] MEDS: cefTRIAXone 1,000 MG in 0.9 % Sodium Chloride 10 ML IVP SCH ×2 (07:37→10:37)
[2022-01-11] MEDS: Sulfamethoxazole/Trimeth DS 1 EACH TABLET PO SCH (07:45)
[2022-01-11 10:53] LABS: Bacteria,Urine Few per hpf (None-Few); Bilirubin,Urine Negative (Negative); Blood,Urine Negative (Negative); Clarity,Urine Clear (Clear); Color,Urine Light-Yellow (Yellow); Glucose,Urine (UA) >=1000 mg/dL (Normal); Ketones,Urine Negative (Negative); Leukocyte Esterase,Urine Negative (Negative); Mucus,Urine Few per lpf (None-Few); Nitrite,Urine Negative (Negative); PH,Urine 6.5 pH Units (5.0-8.0); Protein,Urine Negative (Neg-Trace); RBC,Urine 0-3 per hpf (0-3); Specific Gravity,Urine 1.022 (1.010-1.025); Squamous Epithelial Cell,Urine Few per hpf (None-Few); Urobilinogen,Urine Normal (Normal); WBC,Urine 0-3 per hpf (0-3)
[2022-01-11] MEDS ORDERED: Vancomycin 1,250 MG/262.5 ML IV.SOLN IVPB ONE (11:00)
[2022-01-11] MEDS: Cefepime HCl 2,000 MG in 0.9 % Sodium Chloride 10 ML IVP SCH ×2 (11:28→17:08)
[2022-01-11 12:08] LABS: BUN/Creatinine Ratio 18 (6-26); Blood Urea Nitrogen 9 mg/dL (8-23); C-Reactive Protein 31 mg/L (Less than 10); Calcium 8.6 mg/dL (8.6-10.3); Carbon Dioxide 26 mEq/L (23-29); Chloride 101 mEq/L (98-107); Glucose 290 mg/dL (70-105); Osmolality,Calculated 289 (280-300); Sodium 135 mEq/L (136-145); eGFR For African Americans > 60 (> 60); eGFR For Non-African Americans > 60 (> 60)
[2022-01-11] MEDS: *HR* Enoxaparin 40 MG/0.4 ML SYRINGE SQ SCH (12:19)
[2022-01-11] MEDS ORDERED: Perflutren Lipid Microsphere 1.3 ML in 0.9 % Sodium Chloride 8.7 ML IVP PRN (12:50)
[2022-01-11 14:24] LABS: Adenovirus Not Detected (Not Detect); Bordetella Pertussis Not Detected (Not Detect); Chlamydophila pneumoniae Not Detected (Not Detect); Coronavirus 229E Not Detected (Not Detect); Coronavirus HKU1 Not Detected (Not Detect); Coronavirus NL63 Not Detected (Not Detect); Coronavirus OC43 Not Detected (Not Detect); Human Metapneumovirus Not Detected (Not Detect); Human Rhinovirus/Enterovirus Not Detected (Not Detect); Influenza A Subtype 2009 H1 Not Detected (Not Detect); Influenza B Not Detected (Not Detect); Mycoplasma pneumoniae Not Detected (Not Detect); Parainfluenza Virus 1 Not Detected (Not Detect); Parainfluenza Virus 2 Not Detected (Not Detect); Parainfluenza Virus 3 Not Detected (Not Detect); Parainfluenza Virus 4 Not Detected (Not Detect); Respiratory Syncytial Virus Not Detected (Not Detect); SARS-CoV-2 Not Detected (Not Detect)
[2022-01-11] MEDS: Insulin DETEMIR 100 UNIT/ML X5UNITS SUBQ SCH (20:36)
[2022-01-11] MEDS: *HR* LORazepam 0.5 MG TABLET PO PRN (20:37)
[2022-01-11] MEDS ORDERED: Insulin LISPRO 300 UNITS/3 ML VIAL SUBQ SCH (21:00)
[2022-01-11] MEDS ORDERED: Vancomycin 1,250 MG/262.5 ML IV.SOLN IVPB SCH (23:00)
[2022-01-11] MEDS: MethylPREDNISolone 40 MG/ML VIAL IVP SCH (23:03)
[2022-01-12] MEDS: Cefepime HCl 2,000 MG in 0.9 % Sodium Chloride 10 ML IVP SCH ×3 (02:21→17:02)
[2022-01-12 03:38] LABS: Eosinophils # 0.1 K/mcL (0.0-0.6); Eosinophils % 1.3 %; Hematocrit 39.6 % (35.3-44.9); Immature Granulocytes % 0.5 % (0-4); Lymphocytes # 0.2 K/mcL (0.6-4.6); Lymphocytes % 3.7 %; Mean Corpuscular HGB Conc 32.8 g/dL (31.6-35.5); Mean Corpuscular Hemoglobin 28.9 pg (28.0-33.3); Mean Platelet Volume 10.2 fL (9.4-12.4); Monocytes # 0.2 K/mcL (0.0-1.3); Monocytes % 2.9 %; Neutrophils # 5.7 K/mcL (1.6-8.9); Platelet Count 106 K/mcL (140-400); Red Cell Distribution Width 13.9 % (11.5-14.5); Segmented Neutrophils % 91.6 %; White Blood Count 6.2 K/mcL (4.3-11.1)
[2022-01-12 03:50] LABS: BUN/Creatinine Ratio 26 (6-26); Blood Urea Nitrogen 12 mg/dL (8-23); Calcium 8.7 mg/dL (8.6-10.3); Carbon Dioxide 27 mEq/L (23-29); Chloride 102 mEq/L (98-107); Glucose 214 mg/dL (70-105); Magnesium 2.1 mg/dL (1.6-2.6); Osmolality,Calculated 286 (280-300); Potassium 4.2 mEq/L (3.5-5.1); Sodium 135 mEq/L (136-145); eGFR For African Americans > 60 (> 60); eGFR For Non-African Americans > 60 (> 60)
[2022-01-12] MEDS ORDERED: polyethylene glycoL 3350 17 GM POWD.PACK PO PRN (07:38)
[2022-01-12] MEDS ORDERED: Gabapentin 300 MG CAPSULE PO PRN (07:38)
[2022-01-12] MEDS: Ipratropium/Albuterol Neb 3 ML IH SCH ×5 (07:39→23:28)
[2022-01-12] MEDS: Insulin LISPRO 300 UNITS/3 ML VIAL SUBQ SCH ×3 (07:39→17:02)
[2022-01-12] MEDS: Acetylcysteine 10% 2 ML INHSOL IH SCH ×5 (07:39→23:28)
[2022-01-12] MEDS ORDERED: predniSONE 20 MG TABLET PO SCH ×2 (09:00)
[2022-01-12] MEDS: Sulfamethoxazole/Trimeth DS 1 EACH TABLET PO SCH (09:07)
[2022-01-12] MEDS: Loratadine 10 MG TABLET PO SCH (09:07)
[2022-01-12] MEDS: MethylPREDNISolone 40 MG/ML VIAL IVP SCH ×2 (09:07→17:01)
[2022-01-12] MEDS: Aspirin 81 MG TAB.CHEW PO SCH (09:07)
[2022-01-12] MEDS: *HR* LORazepam 0.5 MG TABLET PO PRN ×2 (09:17→20:02)
[2022-01-12] MEDS ORDERED: Lidocaine -MPF 2% 5 ML VIAL ONE (11:21)
[2022-01-12] MEDS ORDERED: *HR* Propofol 200 MG/20 ML VIAL IVP ONE (11:21)
[2022-01-12] MEDS ORDERED: Lidocaine -MPF 4% 5 ML AMPUL ONE (11:21)
[2022-01-12] MEDS ORDERED: Ondansetron 4 MG/2 ML VIAL ONE (11:22)
[2022-01-12] MEDS ORDERED: Promethazine 6.25 MG in Water for inj. (sterile) 20 ML IVPB PRN (11:34)
[2022-01-12] MEDS ORDERED: Ondansetron 4 MG/2 ML VIAL IVP PRN (11:34)
[2022-01-12] MEDS ORDERED: *HR* HYDROmorphone PF 0.5 MG/0.5 ML SYRINGE IVP PRN (11:34)
[2022-01-12 14:13] LABS: Source of Body Fluid RLL BAL
[2022-01-12] MEDS: *HR* OxyCODONE Immed Rel 5 MG TABLET PO PRN (17:02)
[2022-01-12 20:01] LABS: Appearance of Body Fluid Cloudy (Clear)
[2022-01-12 20:02] LABS: Volume of Body Fluid 18 mL
[2022-01-12] MEDS: Insulin DETEMIR 100 UNIT/ML X5UNITS SUBQ SCH (20:08)
[2022-01-12] MEDS ORDERED: *HR* Metoprolol 5 MG/5 ML VIAL IVP ONE (21:27)
[2022-01-13] MEDS: Cefepime HCl 2,000 MG in 0.9 % Sodium Chloride 10 ML IVP SCH (01:02)
[2022-01-13] MEDS: MethylPREDNISolone 40 MG/ML VIAL IVP SCH (01:03)
[2022-01-13 01:39] LABS: BUN/Creatinine Ratio 33 (6-26); Blood Urea Nitrogen 16 mg/dL (8-23); Calcium 8.3 mg/dL (8.6-10.3); Carbon Dioxide 29 mEq/L (23-29); Chloride 102 mEq/L (98-107); Glucose 233 mg/dL (70-105); Osmolality,Calculated 289 (280-300); Potassium 4.3 mEq/L (3.5-5.1); Sodium 135 mEq/L (136-145); eGFR For African Americans > 60 (> 60); eGFR For Non-African Americans > 60 (> 60)
[2022-01-13 01:45] LABS: Hematocrit 36.1 % (35.3-44.9); Hemoglobin 11.8 g/dL (11.5-15.4); Mean Corpuscular HGB Conc 32.7 g/dL (31.6-35.5); Mean Corpuscular Volume 88.7 fL (83.0-100.0); Mean Platelet Volume 10.2 fL (9.4-12.4); Monocytes # 0.2 K/mcL (0.0-1.3); Platelet Count 100 K/mcL (140-400); Red Blood Count 4.07 M/mcL (3.82-4.97); Red Cell Distribution Width 13.7 % (11.5-14.5); White Blood Count 5.5 K/mcL (4.3-11.1)
[2022-01-13] MEDS: Ipratropium/Albuterol Neb 3 ML IH SCH ×2 (03:55→07:27)
[2022-01-13] MEDS: Acetylcysteine 10% 2 ML INHSOL IH SCH ×5 (03:56→20:42)
[2022-01-13 03:57] LABS: Neutrophils # 5.3 K/mcL (1.6-8.9); Platelet Estimate Decreased (Normal)
[2022-01-13] MEDS: *HR* Enoxaparin 40 MG/0.4 ML SYRINGE SQ SCH (05:11)
[2022-01-13] MEDS: *HR* LORazepam 0.5 MG TABLET PO PRN ×2 (07:52→21:12)
[2022-01-13] MEDS: Sulfamethoxazole/Trimeth DS 1 EACH TABLET PO SCH (07:52)
[2022-01-13] MEDS: Aspirin 81 MG TAB.CHEW PO SCH (07:52)
[2022-01-13] MEDS: Insulin LISPRO 300 UNITS/3 ML VIAL SUBQ SCH ×3 (07:53→16:48)
[2022-01-13] MEDS: Insulin DETEMIR 100 UNIT/ML X5UNITS SUBQ SCH ×2 (07:53→21:05)
[2022-01-13] MEDS ORDERED: Perflutren Lipid Microsphere 1.3 ML in 0.9 % Sodium Chloride 8.7 ML IVP PRN (08:10)
[2022-01-13] MEDS: Loratadine 10 MG TABLET PO SCH (08:23)
[2022-01-13] MEDS ORDERED: predniSONE 20 MG TABLET PO SCH (09:00)
[2022-01-13] MEDS: Levalbuterol Neb 0.63 MG/3 ML IH SCH ×3 (11:16→20:42)
[2022-01-13] MEDS: Nystatin SUSP 5 ML UD.LIQ BC SCH ×3 (16:44→21:07)
[2022-01-13] MEDS: *HR* OxyCODONE Immed Rel 5 MG TABLET PO PRN (21:12)
[2022-01-14] MEDS: Levalbuterol Neb 0.63 MG/3 ML IH SCH ×2 (04:00→10:45)
[2022-01-14] MEDS: Acetylcysteine 10% 2 ML INHSOL IH SCH ×2 (04:00→10:45)
[2022-01-14] MEDS: *HR* Enoxaparin 40 MG/0.4 ML SYRINGE SQ SCH (05:00)
[2022-01-14] MEDS: *HR* OxyCODONE Immed Rel 5 MG TABLET PO PRN (05:00)
[2022-01-14 05:22] LABS: Eosinophils # 0.1 K/mcL (0.0-0.6); Eosinophils % 1.7 %; Hematocrit 38.3 % (35.3-44.9); Hemoglobin 12.8 g/dL (11.5-15.4); Immature Granulocytes % 0.4 % (0-4); Lymphocytes # 0.3 K/mcL (0.6-4.6); Lymphocytes % 4.9 %; Mean Corpuscular HGB Conc 33.4 g/dL (31.6-35.5); Mean Corpuscular Hemoglobin 29.3 pg (28.0-33.3); Mean Corpuscular Volume 87.6 fL (83.0-100.0); Mean Platelet Volume 9.7 fL (9.4-12.4); Monocytes # 0.4 K/mcL (0.0-1.3); Monocytes % 7.6 %; Neutrophils # 4.5 K/mcL (1.6-8.9); Platelet Count 102 K/mcL (140-400); Red Blood Count 4.37 M/mcL (3.82-4.97); Red Cell Distribution Width 13.9 % (11.5-14.5); Segmented Neutrophils % 85.4 %; White Blood Count 5.3 K/mcL (4.3-11.1)
[2022-01-14 05:42] LABS: BUN/Creatinine Ratio 32 (6-26); Blood Urea Nitrogen 13 mg/dL (8-23); Calcium 8.4 mg/dL (8.6-10.3); Carbon Dioxide 31 mEq/L (23-29); Chloride 101 mEq/L (98-107); Glucose 68 mg/dL (70-105); Osmolality,Calculated 282 (280-300); Potassium 3.6 mEq/L (3.5-5.1); Sodium 137 mEq/L (136-145); eGFR For African Americans > 60 (> 60); eGFR For Non-African Americans > 60 (> 60)
[2022-01-14] MEDS: Insulin DETEMIR 100 UNIT/ML X5UNITS SUBQ SCH (07:49)
[2022-01-14] MEDS: Insulin LISPRO 300 UNITS/3 ML VIAL SUBQ SCH ×2 (07:49→11:34)
[2022-01-14] MEDS ORDERED: predniSONE 20 MG TABLET PO SCH (09:00)
[2022-01-14] MEDS: Sulfamethoxazole/Trimeth DS 1 EACH TABLET PO SCH (09:13)
[2022-01-14] MEDS: Loratadine 10 MG TABLET PO SCH (09:13)
[2022-01-14] MEDS: Aspirin 81 MG TAB.CHEW PO SCH (09:13)
[2022-01-14] MEDS: Nystatin SUSP 5 ML UD.LIQ BC SCH ×2 (09:13→12:16)
[2022-01-14 11:23] VITALS: BP 105/71; PULSE 89; TEMP 98; O2SAT 94
== END 2022-01-14 12:52 | disposition home health service (06) | DRG 190 ==
LOC: 2ANU → OBSVTOIN 23:42 → SUATTDRO 23:42
PROVIDERS: ADMIT Hospitalist; ATTEND Pharmacist
PROC: ENDOBRF (2022-01-12 15:00)

== ENCOUNTER 2022-03-21 14:41 | Inpatient (IN) ==
[2022-03-21 16:29] LABS: Basophils % 0.6 %; Eosinophils # 0.4 K/mcL (0.0-0.6); Hematocrit 37.3 % (35.3-44.9); Hemoglobin 12.6 g/dL (11.5-15.4); Immature Granulocytes % 0.6 % (0-4); Lymphocytes # 1.3 K/mcL (0.6-4.6); Lymphocytes % 19.1 %; Mean Corpuscular HGB Conc 33.8 g/dL (31.6-35.5); Mean Corpuscular Hemoglobin 28.7 pg (28.0-33.3); Mean Platelet Volume 9.5 fL (9.4-12.4); Monocytes # 0.5 K/mcL (0.0-1.3); Monocytes % 6.6 %; Neutrophils # 4.6 K/mcL (1.6-8.9); Platelet Count 154 K/mcL (140-400); Red Blood Count 4.39 M/mcL (3.82-4.97); Red Cell Distribution Width 15.5 % (11.5-14.5); Segmented Neutrophils % 67.1 %; White Blood Count 6.8 K/mcL (4.3-11.1)
[2022-03-21] MEDS ORDERED: Naloxone 0.4 MG/ML INJ IVP PRN (18:09)
[2022-03-21] MEDS ORDERED: Ondansetron 4 MG/2 ML VIAL IVP PRN (19:52)
[2022-03-21] MEDS ORDERED: *HR* Dextrose 50 % in Water (Syg) 50 ML SYRINGE IVP PRN (20:16)
[2022-03-21] MEDS ORDERED: D5% in Water 1,000 ML IVC PRN (20:16)
[2022-03-21] MEDS ORDERED: Dextrose 4 GM Chewable Tablets PO PRN ×2 (20:16)
[2022-03-21 20:17] LABS: Calcium 8.5 mg/dL (8.6-10.3); Potassium 4.2 mEq/L (3.5-5.1)
[2022-03-21] MEDS ORDERED: Saline Nasal Spray 44 ML BOTTLE NS PRN (20:17)
[2022-03-21] MEDS: Gabapentin 300 MG CAPSULE PO SCH (21:29)
[2022-03-21] MEDS: *HR* LORazepam 0.5 MG TABLET PO PRN (21:29)
[2022-03-21] MEDS: 0.9 % Sodium Chloride 1,000 ML IVC SCH (21:30)
[2022-03-21] MEDS: Insulin LISPRO 300 UNITS/3 ML VIAL SUBQ SCH (21:40)
[2022-03-21] MEDS: cefTRIAXone 1,000 MG in 0.9 % Sodium Chloride 10 ML IVPB SCH (21:46)
[2022-03-21] MEDS: predniSONE 20 MG TABLET PO SCH (23:38)
[2022-03-22] MEDS: Acetylcysteine 10% 2 ML INHSOL IH SCH ×5 (03:23→20:46)
[2022-03-22] MEDS: Levalbuterol Neb 0.63 MG/3 ML IH SCH ×5 (03:24→20:46)
[2022-03-22 04:07] LABS: Hematocrit 34.8 % (35.3-44.9); Hemoglobin 11.6 g/dL (11.5-15.4); Mean Corpuscular HGB Conc 33.3 g/dL (31.6-35.5); Mean Corpuscular Hemoglobin 29.3 pg (28.0-33.3); Mean Corpuscular Volume 87.9 fL (83.0-100.0); Mean Platelet Volume 9.2 fL (9.4-12.4); Platelet Count 209 K/mcL (140-400); Red Blood Count 3.96 M/mcL (3.82-4.97); Red Cell Distribution Width 15.3 % (11.5-14.5)
[2022-03-22 04:08] LABS: White Blood Count 12.6 K/mcL (4.3-11.1)
[2022-03-22 04:14] LABS: INR 1.8; Prothrombin Time 19.6 Seconds (9.4-12.1)
[2022-03-22 04:17] LABS: Activated Partial Thrombo Time 29.8 Seconds (26.0-36.0)
[2022-03-22 04:24] LABS: BUN/Creatinine Ratio 19 (6-26); Blood Urea Nitrogen 7 mg/dL (8-23); Calcium 9.7 mg/dL (8.6-10.3); Carbon Dioxide 32 mEq/L (23-29); Chloride 96 mEq/L (98-107); Glucose 175 mg/dL (70-105); Magnesium 1.9 mg/dL (1.6-2.6); Osmolality,Calculated 278 (280-300); Potassium 3.8 mEq/L (3.5-5.1); Sodium 133 mEq/L (136-145); eGFR For African Americans > 60 (> 60); eGFR For Non-African Americans > 60 (> 60)
[2022-03-22] MEDS: *HR* Heparin 5,000 UNIT/ML VIAL SQ SCH ×3 (08:17→20:49)
[2022-03-22] MEDS: Gabapentin 300 MG CAPSULE PO SCH ×2 (08:17→20:48)
[2022-03-22] MEDS: cefTRIAXone 1,000 MG in 0.9 % Sodium Chloride 10 ML IVPB SCH (08:17)
[2022-03-22] MEDS: Loratadine 10 MG TABLET PO SCH (08:18)
[2022-03-22] MEDS: predniSONE 20 MG TABLET PO SCH (08:18)
[2022-03-22] MEDS: Aspirin 81 MG TAB.CHEW PO SCH (08:18)
[2022-03-22] MEDS: 0.9 % Sodium Chloride 1,000 ML IVC SCH (08:19)
[2022-03-22] MEDS: Insulin LISPRO 300 UNITS/3 ML VIAL SUBQ SCH ×3 (08:19→16:57)
[2022-03-22] MEDS: *HR* HYDROcodone/Acet 5/325 mg TABLET PO PRN ×3 (10:10→22:29)
[2022-03-22] MEDS: Sulfamethoxazole/Trimeth DS 1 EACH TABLET PO SCH (14:53)
[2022-03-22] MEDS: polyethylene glycoL 3350 17 GM POWD.PACK PO SCH (20:47)
[2022-03-22] MEDS: Acetaminophen 325 MG TABLET PO PRN (21:23)
[2022-03-23] MEDS: *HR* LORazepam 0.5 MG TABLET PO PRN (00:51)
[2022-03-23] MEDS: Acetylcysteine 10% 2 ML INHSOL IH SCH ×4 (04:34→20:32)
[2022-03-23] MEDS: Levalbuterol Neb 0.63 MG/3 ML IH SCH ×4 (04:34→20:31)
[2022-03-23 05:23] LABS: Basophils % 0.1 %; Eosinophils % 0.5 %; Hematocrit 31.1 % (35.3-44.9); Hemoglobin 10.1 g/dL (11.5-15.4); Immature Granulocytes % 0.8 % (0-4); Lymphocytes # 0.4 K/mcL (0.6-4.6); Lymphocytes % 5.1 %; Mean Corpuscular HGB Conc 32.5 g/dL (31.6-35.5); Mean Corpuscular Hemoglobin 28.9 pg (28.0-33.3); Mean Corpuscular Volume 89.1 fL (83.0-100.0); Mean Platelet Volume 9.1 fL (9.4-12.4); Monocytes # 0.5 K/mcL (0.0-1.3); Monocytes % 6.7 %; Neutrophils # 6.6 K/mcL (1.6-8.9); Platelet Count 182 K/mcL (140-400); Red Blood Count 3.49 M/mcL (3.82-4.97); Red Cell Distribution Width 15.1 % (11.5-14.5); Segmented Neutrophils % 86.8 %; White Blood Count 7.6 K/mcL (4.3-11.1)
[2022-03-23 05:38] LABS: BUN/Creatinine Ratio 22 (6-26); Blood Urea Nitrogen 7 mg/dL (8-23); Carbon Dioxide 31 mEq/L (23-29); Chloride 99 mEq/L (98-107); Glucose 248 mg/dL (70-105); Osmolality,Calculated 286 (280-300); Potassium 3.5 mEq/L (3.5-5.1); Sodium 135 mEq/L (136-145); eGFR For African Americans > 60 (> 60); eGFR For Non-African Americans > 60 (> 60)
[2022-03-23] MEDS: *HR* Heparin 5,000 UNIT/ML VIAL SQ SCH ×3 (05:40→20:24)
[2022-03-23] MEDS: polyethylene glycoL 3350 17 GM POWD.PACK PO SCH ×3 (08:00→20:24)
[2022-03-23] MEDS: Insulin LISPRO 300 UNITS/3 ML VIAL SUBQ SCH ×3 (08:19→16:55)
[2022-03-23] MEDS: cefTRIAXone 1,000 MG in 0.9 % Sodium Chloride 10 ML IVPB SCH (08:19)
[2022-03-23] MEDS: *HR* HYDROcodone/Acet 5/325 mg TABLET PO PRN ×3 (09:23→20:38)
[2022-03-23] MEDS: Furosemide 20 MG TABLET PO SCH (09:24)
[2022-03-23] MEDS: predniSONE 20 MG TABLET PO SCH (09:24)
[2022-03-23] MEDS: Gabapentin 300 MG CAPSULE PO SCH ×2 (09:24→20:23)
[2022-03-23] MEDS: Aspirin 81 MG TAB.CHEW PO SCH (09:24)
[2022-03-23] MEDS: Loratadine 10 MG TABLET PO SCH (09:24)
[2022-03-24] MEDS: Levalbuterol Neb 0.63 MG/3 ML IH SCH ×4 (03:58→20:35)
[2022-03-24] MEDS: Acetylcysteine 10% 2 ML INHSOL IH SCH ×4 (03:58→20:35)
[2022-03-24] MEDS: *HR* Heparin 5,000 UNIT/ML VIAL SQ SCH ×3 (06:18→20:29)
[2022-03-24] MEDS: Insulin LISPRO 300 UNITS/3 ML VIAL SUBQ SCH ×3 (09:17→17:11)
[2022-03-24] MEDS: cefTRIAXone 1,000 MG in 0.9 % Sodium Chloride 10 ML IVPB SCH (09:18)
[2022-03-24] MEDS: predniSONE 20 MG TABLET PO SCH (09:20)
[2022-03-24] MEDS: Loratadine 10 MG TABLET PO SCH (09:20)
[2022-03-24] MEDS: Gabapentin 300 MG CAPSULE PO SCH ×2 (09:20→20:28)
[2022-03-24] MEDS: Aspirin 81 MG TAB.CHEW PO SCH (09:20)
[2022-03-24] MEDS: Furosemide 20 MG TABLET PO SCH (09:24)
[2022-03-24] MEDS: *HR* HYDROcodone/Acet 5/325 mg TABLET PO PRN ×3 (09:25→21:55)
[2022-03-24] MEDS: polyethylene glycoL 3350 17 GM POWD.PACK PO SCH ×2 (09:25→20:29)
[2022-03-24 12:14] LABS: Bilirubin,Urine Negative (Negative); Blood,Urine Negative (Negative); Clarity,Urine Clear (Clear); Color,Urine Light-Yellow (Yellow); Glucose,Urine (UA) Normal (Normal); Ketones,Urine Negative (Negative); Leukocyte Esterase,Urine Negative (Negative); Nitrite,Urine Negative (Negative); PH,Urine 7.5 pH Units (5.0-8.0); Protein,Urine Negative (Neg-Trace); Specific Gravity,Urine 1.014 (1.010-1.025)
[2022-03-24] MEDS: Sulfamethoxazole/Trimeth DS 1 EACH TABLET PO SCH (13:28)
[2022-03-24 13:47] LABS: Basophils % 0.1 %; Eosinophils % 0.2 %; Hematocrit 36.8 % (35.3-44.9); Immature Granulocytes % 0.6 % (0-4); Lymphocytes # 0.2 K/mcL (0.6-4.6); Lymphocytes % 1.4 %; Mean Corpuscular HGB Conc 31.8 g/dL (31.6-35.5); Mean Corpuscular Hemoglobin 28.7 pg (28.0-33.3); Mean Corpuscular Volume 90.2 fL (83.0-100.0); Mean Platelet Volume 9.4 fL (9.4-12.4); Monocytes # 0.5 K/mcL (0.0-1.3); Monocytes % 3.9 %; Neutrophils # 11.9 K/mcL (1.6-8.9); Platelet Count 178 K/mcL (140-400); Red Blood Count 4.08 M/mcL (3.82-4.97); Red Cell Distribution Width 15.6 % (11.5-14.5); Segmented Neutrophils % 93.8 %
[2022-03-24 13:52] LABS: Hemoglobin 11.7 g/dL (11.5-15.4); White Blood Count 12.7 K/mcL (4.3-11.1)
[2022-03-24] MEDS ORDERED: Gadolinium Contrast Agent (WT Based) IV PRN (14:37)
[2022-03-24] MEDS ORDERED: Isovue-370 500 ML BOTTLE IVP ONE (14:39)
[2022-03-24 14:40] LABS: Platelet Estimate Normal (Normal)
[2022-03-24] MEDS: Acetaminophen 325 MG TABLET PO PRN (14:42)
[2022-03-24] MEDS ORDERED: GADOBUTROL 30 MMOL/30 ML VIAL IVP ONE (16:08)
[2022-03-24] MEDS: *HR* LORazepam 0.5 MG TABLET PO PRN (20:38)
[2022-03-25] MEDS: Levalbuterol Neb 0.63 MG/3 ML IH SCH ×4 (04:19→20:10)
[2022-03-25] MEDS: Acetylcysteine 10% 2 ML INHSOL IH SCH ×4 (04:19→20:10)
[2022-03-25] MEDS: *HR* Heparin 5,000 UNIT/ML VIAL SQ SCH ×3 (06:04→20:14)
[2022-03-25 06:57] LABS: Basophils % 0.1 %; Eosinophils # 0.1 K/mcL (0.0-0.6); Eosinophils % 0.7 %; Hematocrit 32.5 % (35.3-44.9); Hemoglobin 10.5 g/dL (11.5-15.4); Immature Granulocytes % 0.9 % (0-4); Lymphocytes # 0.3 K/mcL (0.6-4.6); Lymphocytes % 3.8 %; Mean Corpuscular HGB Conc 32.3 g/dL (31.6-35.5); Mean Corpuscular Volume 89.8 fL (83.0-100.0); Mean Platelet Volume 9.3 fL (9.4-12.4); Monocytes # 0.6 K/mcL (0.0-1.3); Monocytes % 7.3 %; Neutrophils # 7.1 K/mcL (1.6-8.9); Platelet Count 162 K/mcL (140-400); Red Blood Count 3.62 M/mcL (3.82-4.97); Red Cell Distribution Width 15.7 % (11.5-14.5); Segmented Neutrophils % 87.2 %; White Blood Count 8.1 K/mcL (4.3-11.1)
[2022-03-25] MEDS: cefTRIAXone 1,000 MG in 0.9 % Sodium Chloride 10 ML IVPB SCH (08:04)
[2022-03-25] MEDS: predniSONE 20 MG TABLET PO SCH (08:05)
[2022-03-25] MEDS: Loratadine 10 MG TABLET PO SCH (08:05)
[2022-03-25] MEDS: Furosemide 20 MG TABLET PO SCH (08:06)
[2022-03-25] MEDS: *HR* HYDROcodone/Acet 5/325 mg TABLET PO PRN ×3 (08:06→21:32)
[2022-03-25] MEDS: Aspirin 81 MG TAB.CHEW PO SCH (08:06)
[2022-03-25] MEDS: polyethylene glycoL 3350 17 GM POWD.PACK PO SCH ×2 (08:06→20:14)
[2022-03-25] MEDS: Gabapentin 300 MG CAPSULE PO SCH ×2 (08:06→20:15)
[2022-03-25] MEDS: Insulin LISPRO 300 UNITS/3 ML VIAL SUBQ SCH ×3 (08:06→16:41)
[2022-03-25] MEDS ORDERED: Insulin DETEMIR 100 UNIT/ML X5UNITS SUBQ SCH (21:00)
[2022-03-25] MEDS: *HR* LORazepam 0.5 MG TABLET PO PRN (21:32)
[2022-03-26] MEDS: Levalbuterol Neb 0.63 MG/3 ML IH SCH ×4 (03:51→19:55)
[2022-03-26] MEDS: Acetylcysteine 10% 2 ML INHSOL IH SCH ×4 (03:51→19:55)
[2022-03-26] MEDS: *HR* Heparin 5,000 UNIT/ML VIAL SQ SCH ×3 (06:38→20:54)
[2022-03-26] MEDS: cefTRIAXone 1,000 MG in 0.9 % Sodium Chloride 10 ML IVPB SCH (08:59)
[2022-03-26] MEDS: *HR* LORazepam 0.5 MG TABLET PO PRN ×2 (09:00→17:03)
[2022-03-26] MEDS: Gabapentin 300 MG CAPSULE PO SCH ×2 (09:00→20:55)
[2022-03-26] MEDS: Insulin LISPRO 300 UNITS/3 ML VIAL SUBQ SCH ×3 (09:00→17:03)
[2022-03-26] MEDS: predniSONE 20 MG TABLET PO SCH (09:00)
[2022-03-26] MEDS: Loratadine 10 MG TABLET PO SCH (09:01)
[2022-03-26] MEDS: Aspirin 81 MG TAB.CHEW PO SCH (09:01)
[2022-03-26] MEDS: *HR* HYDROcodone/Acet 5/325 mg TABLET PO PRN ×2 (09:01→17:02)
[2022-03-26] MEDS: Furosemide 20 MG TABLET PO SCH (09:01)
[2022-03-26] MEDS: polyethylene glycoL 3350 17 GM POWD.PACK PO SCH ×2 (09:01→20:55)
[2022-03-26] MEDS ORDERED: Ipratropium/Albuterol Neb 3 ML IH PRN (18:51)
[2022-03-26] MEDS: Ipratropium/Albuterol Neb 3 ML IH SCH (20:03)
[2022-03-26] MEDS: Insulin DETEMIR 100 UNIT/ML X5UNITS SUBQ SCH (20:55)
[2022-03-27] MEDS: *HR* HYDROcodone/Acet 5/325 mg TABLET PO PRN ×2 (03:25→18:21)
[2022-03-27] MEDS: *HR* LORazepam 0.5 MG TABLET PO PRN (03:26)
[2022-03-27] MEDS: Levalbuterol Neb 0.63 MG/3 ML IH SCH ×4 (03:48→20:17)
[2022-03-27] MEDS: Acetylcysteine 10% 2 ML INHSOL IH SCH ×4 (03:48→20:17)
[2022-03-27] MEDS: *HR* Heparin 5,000 UNIT/ML VIAL SQ SCH ×3 (06:37→21:22)
[2022-03-27] MEDS: Insulin LISPRO 300 UNITS/3 ML VIAL SUBQ SCH ×3 (07:23→17:29)
[2022-03-27] MEDS: Ipratropium/Albuterol Neb 3 ML IH SCH ×4 (07:32→20:19)
[2022-03-27] MEDS: Furosemide 20 MG TABLET PO SCH (08:17)
[2022-03-27] MEDS: Aspirin 81 MG TAB.CHEW PO SCH (08:17)
[2022-03-27] MEDS: polyethylene glycoL 3350 17 GM POWD.PACK PO SCH ×2 (08:17→21:22)
[2022-03-27] MEDS: Loratadine 10 MG TABLET PO SCH (08:17)
[2022-03-27] MEDS: Gabapentin 300 MG CAPSULE PO SCH ×2 (08:17→21:22)
[2022-03-27] MEDS: predniSONE 20 MG TABLET PO SCH (08:17)
[2022-03-27] MEDS: Sulfamethoxazole/Trimeth DS 1 EACH TABLET PO SCH (15:30)
[2022-03-27] MEDS: Insulin DETEMIR 100 UNIT/ML X5UNITS SUBQ SCH (21:22)
[2022-03-28] MEDS: Levalbuterol Neb 0.63 MG/3 ML IH SCH ×5 (04:16→22:49)
[2022-03-28] MEDS: Acetylcysteine 10% 2 ML INHSOL IH SCH ×5 (04:16→22:49)
[2022-03-28] MEDS: Ipratropium/Albuterol Neb 3 ML IH SCH (04:16)
[2022-03-28] MEDS: *HR* Heparin 5,000 UNIT/ML VIAL SQ SCH ×3 (07:06→22:15)
[2022-03-28] MEDS: Gabapentin 300 MG CAPSULE PO SCH ×2 (09:17→22:14)
[2022-03-28] MEDS: predniSONE 20 MG TABLET PO SCH (09:17)
[2022-03-28] MEDS: Loratadine 10 MG TABLET PO SCH (09:17)
[2022-03-28] MEDS: Furosemide 20 MG TABLET PO SCH (09:17)
[2022-03-28] MEDS: Aspirin 81 MG TAB.CHEW PO SCH (09:17)
[2022-03-28] MEDS: *HR* HYDROcodone/Acet 5/325 mg TABLET PO PRN ×3 (09:17→23:48)
[2022-03-28] MEDS: polyethylene glycoL 3350 17 GM POWD.PACK PO SCH ×2 (09:18→22:15)
[2022-03-28] MEDS: Insulin LISPRO 300 UNITS/3 ML VIAL SUBQ SCH ×3 (09:23→17:03)
[2022-03-28 20:09] VITALS: BP 94/64; PULSE 90; TEMP 97.5
[2022-03-28] MEDS: Insulin DETEMIR 100 UNIT/ML X5UNITS SUBQ SCH (22:15)
[2022-03-28 22:51] VITALS: O2SAT 95
== END 2022-03-28 23:45 | disposition short-term general hospital (02) | DRG 543 ==
LOC: 4WAOSI → 3BNU 03-22 12:12 → 3ANU 03-27 16:56
PROVIDERS: ADMIT Student in an Organized Health Care Education/Training Program; ATTEND Student in an Organized Health Care Education/Training Program